=== PATIENT | male | born 2000 | race Caucasian/White ===

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

== ENCOUNTER 2020-02-25 17:42 | Emergency (ER) | payer BC ==
--- NOTE | 2020-02-25 18:52 | EDPHYS ---
Physician Documentation [facility] Name: Evens Carreon Age: 19 yrs Sex: Male : 2000 Arrival Date: 02/25/2020 Time: 17:46 Bed 19 Private MD: ED Physician Je Go HPI: 02/24 18:42 This 19 yrs old Male presents to ER via Ambulatory with complaints of cam POSSIBLE STREP THROAT. 18:42 The patient presents with sore throat. The patient describes throat pain as constant, cam raw, left greater than right, no trismus. Onset: The symptoms/episode began/occurred 3 day(s) ago. Severity of symptoms: At their worst the symptoms were mild, moderate, in the emergency department the symptoms are unchanged. Modifying factors: The symptoms are alleviated by nothing, the symptoms are aggravated by fluids, swallowing, Patient's oral intake status: good. Associated signs and symptoms: The patient has no apparent associated signs or symptoms. The patient has not experienced similar symptoms in the past. Historical: - Allergies: 18:01 No Known Allergies; iw - Home Meds: 18:01 None [Active]; iw - PMHx: 18:01 None; iw - PSHx: 18:01 None; iw - Immunization history:: Adult Immunizations. - Social history:: Smoking status: Reported history of juuling and/or vaping. - Family history:: not pertinent. ROS: 18:42 Constitutional: Negative for fever, chills, and weight loss, Eyes: Negative for injury, cam pain, redness, and discharge, Neck: Negative for injury, pain, and swelling, Cardiovascular: Negative for chest pain, palpitations, and edema, Respiratory: Negative for shortness of breath, cough, wheezing, and pleuritic chest pain, Abdomen/GI: Negative for abdominal pain, nausea, vomiting, diarrhea, and constipation, Back: Negative for injury and pain, : Negative for injury, bleeding, discharge, and swelling, MS/Extremity: Negative for injury and deformity, Skin: Negative for injury, rash, and discoloration, Neuro: Negative for headache, weakness, numbness, tingling, and seizure, Psych: Negative for depression, anxiety, suicide ideation, homicidal ideation, and hallucinations, Allergy/Immunology: Negative for hives, rash, and allergies, Endocrine: Negative for neck swelling, polydipsia, polyuria, polyphagia, and marked weight changes, Hematologic/Lymphatic: Negative for swollen nodes, abnormal bleeding, and unusual bruising. 18:42 ENT: Positive for sore throat. Exam: 18:42 Constitutional: This is a well developed, well nourished patient who is awake, alert, cam and in no acute distress. Head/Face: Normocephalic, atraumatic. Eyes: Pupils equal round and reactive to light, extra-ocular motions intact. Lids and lashes normal. Conjunctiva and sclera are non-icteric and not injected. Cornea within normal limits. Periorbital areas with no swelling, redness, or edema. Neck: Trachea midline, no thyromegaly or masses palpated, and no cervical lymphadenopathy. Supple, full range of motion without nuchal rigidity, or vertebral point tenderness. No Meningismus. Chest/axilla: Normal chest wall appearance and motion. Nontender with no deformity. No lesions are appreciated. Cardiovascular: Regular rate and rhythm with a normal S1 and S2. No gallops, murmurs, or rubs. Normal PMI, no JVD. No pulse deficits. Respiratory: Lungs have equal breath sounds bilaterally, clear to auscultation and percussion. No rales, rhonchi or wheezes noted. No increased work of breathing, no retractions or nasal flaring. Abdomen/GI: Soft, non-tender, with normal bowel sounds. No distension or tympany. No guarding or rebound. No evidence of tenderness throughout. Back: No spinal tenderness. No costovertebral tenderness. Full range of motion. Male : Normal genitalia with no discharge or lesions. Skin: Warm, dry with normal turgor. Normal color with no rashes, no lesions, and no evidence of cellulitis. MS/ Extremity: Pulses equal, no cyanosis. Neurovascular intact. Full, normal range of motion. Neuro: Awake and alert, GCS 15, oriented to person, place, time, and situation. Cranial nerves II-XII grossly intact. Motor strength 5/5 in all extremities. Sensory grossly intact. Cerebellar exam normal. Normal gait. Psych: Awake, alert, with orientation to person, place and time. Behavior, mood, and affect are within normal limits. 18:42 ENT: Posterior pharynx: Airway: normal, no evidence of obstruction, Tonsils: enlarged on the left, with erythema, with exudate, Uvula: midline, non-edematous, erythema, swelling, that is mild, erythema, that is mild, exudate, that is moderate, peritonsillar mass, left tonsil more swollen , slightly asymmetric than right, no trismis. no tenting of the soft palate. Vital Signs: 18:00 BP 139 / 94; Pulse 114; Resp 18 S; Temp 99.8; Pulse Ox 98% on R/A; Weight 56.7 kg; iw Height 5 ft. 3 in. (160.02 cm); Pain 10/10; 18:24 Temp 99.1(O); aa5 18:00 Body Mass Index 22.14 (56.70 kg, 160.02 cm) iw MDM: 17:55 Patient medically screened. [facility] 18:47 Data reviewed: vital signs, nurses notes, lab test result(s). [facility] 02/24 17:55 Order name: Strep; Complete Time: 18:35 [facility] 02/24 18:19 Order name: Throat Culture [facility] 02/24 18:41 Order name: PO challenge; Complete Time: 18:46 [facility] Administered Medications: 19:00 Drug: Bicillin L-A 1.2 million units Route: IM; Site: right gluteus; aa5 19:19 Follow up: Response: No adverse reaction j 19:00 Drug: Clindamycin 300 mg Route: PO; aa5 19:19 Follow up: Response: No adverse reaction j 19:00 Drug: Decadron 10 mg Route: IM; Site: left gluteus; aa5 19:19 Follow up: Response: No adverse reaction j Disposition: 02/25/20 18:51 Discharged to Home. Impression: Acute tonsillitis - peritonsilitis, left. - Condition is Stable. - Discharge Instructions: Tonsillitis, Tonsillitis, [id number], Peritonsillar Cellulitis. - Prescriptions for Clindamycin HCl 300 mg Oral Capsule - take 1 capsule by ORAL route every 6 hours for 10 days; 40 capsule. - Medication Reconciliation Form, Thank You Letter, Antibiotic Education, Prescription Opioid Use form. - Follow up: Private Physician; When: 2 - 3 days; Reason: Recheck today's complaints, Continuance of care, Re-evaluation by your physician. Follow up: Cooper, Tamra, MD; When: 2 - 3 days; Reason: Recheck today's complaints, Re-evaluation by your physician. - Problem is new. - Symptoms are unchanged. Signatures: Dispatcher [employer] EDJe Neely MD MD cha Williams, Irene, RN RN iw Eduarda Patrick RN RN aa5 Wenceslao Hendricks RN RN jd3 Corrections: (The following items were deleted from the chart) 19:20 18:51 02/25/2020 18:51 Discharged to Home. Impression: Acute tonsillitis - jd3 peritonsilitis, left. Condition is Stable. Forms are Medication Reconciliation Form, Thank You Letter, Antibiotic Education, Prescription Opioid Use. Follow up: Private Physician; When: 2 - 3 days; Reason: Recheck today's complaints, Continuance of care, Re-evaluation by your physician. Follow up: Tamra Cooper; When: 2 - 3 days; Reason: Recheck today's complaints, Re-evaluation by your physician. Problem is new. Symptoms are unchanged. cam
--- NOTE | 2020-02-25 18:52 | ER ---
Nurse's Notes [facility] Name: Evens Carreon Age: 19 yrs Sex: Male : 2000 Arrival Date: 02/25/2020 Time: 17:46 Bed 19 Private MD: Diagnosis: Acute tonsillitis-peritonsilitis, left Presentation: 02/24 18:00 Chief complaint: Patient states: sore throat, fever, chills, pain when swallowing, also iw has white bumps in throat X 2 days. Coronavirus screen: Proceed with normal triage. Patient denies a cough. Patient denies shortness of breath or difficulty breathing. Patient reports a measured and/or subjective temperature greater than 100.4F. Patient denies travel on a cruise ship or to a country the [facility] currently lists as an affected area. Patient denies contact with known and/or suspected case of COVID-19. Ebola Screen: Patient negative for fever greater than or equal to 101.5 degrees Fahrenheit, and additional compatible Ebola Virus Disease symptoms Patient denies exposure to infectious person. Patient denies travel to an Ebola-affected area in the 21 days before illness onset. No symptoms or risks identified at this time. Initial Sepsis Screen: Does the patient meet any 2 criteria? No. Patient's initial sepsis screen is negative. Does the patient have a suspected source of infection? No. Patient's initial sepsis screen is negative. Risk Assessment: Do you want to hurt yourself or someone else? Patient reports no desire to harm self or others. Onset of symptoms was February 23, 2020. 18:00 Method Of Arrival: Ambulatory iw 18:00 Acuity: JOVANA 4 iw Historical: - Allergies: 18:01 No Known Allergies; iw - Home Meds: 18:01 None [Active]; iw - PMHx: 18:01 None; iw - PSHx: 18:01 None; iw - Immunization history:: Adult Immunizations. - Social history:: Smoking status: Reported history of juuling and/or vaping. - Family history:: not pertinent. Screenin:00 Abuse screen: Denies threats or abuse. Nutritional screening: No deficits noted. aa5 Tuberculosis screening: No symptoms or risk factors identified. Fall Risk None identified. Assessment: 18:00 General: Appears comfortable, Behavior is calm, cooperative. Pain: Complains of pain in aa5 throat Pain currently is 10 out of 10 on a pain scale. Neuro: Level of Consciousness is awake, alert, obeys commands, Oriented to person, place, time, situation. Cardiovascular: Patient's skin is warm and dry. Respiratory: Airway is patent Respiratory effort is even, unlabored, Respiratory pattern is regular, symmetrical. GI: No signs and/or symptoms were reported involving the gastrointestinal system. : No signs and/or symptoms were reported regarding the genitourinary system. EENT: Throat is reddened has patchy exudate has enlarged tonsils on left. Derm: Skin is pink, warm \T\ dry. Musculoskeletal: Range of motion: intact in all extremities. 19:19 Reassessment: Patient appears in no apparent distress at this time. Patient and/or jd3 family updated on plan of care and expected duration. Pain level reassessed. Patient is alert, oriented x 3, equal unlabored respirations, skin warm/dry/pink. pt reported understanding of discharge instructions. Vital Signs: 18:00 BP 139 / 94; Pulse 114; Resp 18 S; Temp 99.8; Pulse Ox 98% on R/A; Weight 56.7 kg; iw Height 5 ft. 3 in. (160.02 cm); Pain 10/10; 18:24 Temp 99.1(O); aa5 18:00 Body Mass Index 22.14 (56.70 kg, 160.02 cm) ED Course: 17:46 Patient arrived in ED. fj1 17:55 Je Go MD is Attending Physician. cam 18:01 Triage completed. iw 18:02 Arm band placed on. iw 18:02 Patient has correct armband on for positive identification. aa5 18:24 Eduarda Patrick, VENICE is Primary Nurse. aa5 18:49 Tamra Cooper MD is Referral Physician. cam 19:18 No provider procedures requiring assistance completed. Patient did not have IV access jd3 during this emergency room visit. Administered Medications: 19:00 Drug: Bicillin L-A 1.2 million units Route: IM; Site: right gluteus; aa5 19:19 Follow up: Response: No adverse reaction jd3 19:00 Drug: Clindamycin 300 mg Route: PO; aa5 19:19 Follow up: Response: No adverse reaction jd3 19:00 Drug: Decadron 10 mg Route: IM; Site: left gluteus; aa5 19:19 Follow up: Response: No adverse reaction jd3 Outcome: 18:51 Discharge ordered by MD. levy 19:18 Discharged to home ambulatory. jd3 19:18 Condition: stable 19:18 Discharge instructions given to patient, Instructed on discharge instructions, follow up and referral plans. medication usage, Demonstrated understanding of instructions, follow-up care, medications, Prescriptions given X 1. 19:20 Patient left the ED. jd3 Signatures: Je Go MD MD cha Williams, Irene, RN RN iw Calderon, Audri, RN RN aa5 Wenceslao Hendricks RN RN Yakov Flowers fj1
[2020-02-25] MEDS ORDERED: PEN G BENZ LA 1.2MU/2ML SYRINGE IM ONE (18:54)
[2020-02-25] MEDS ORDERED: dexAMETHasone 10 MG/ML VIAL ONE (18:56)
[2020-02-25 19:40] VITALS: BP 139/94; O2SAT 98
[2020-02-25 19:41] VITALS: TEMP 99.1
== END 2020-02-25 19:20 | disposition home or self-care (01) ==
LOC: ER 17:42
DX: J03.90 Acute tonsillitis, unspecified (principal)
CPT/HCPCS: 87070; 87081; J0561; J1100; 96372; 99283

== ENCOUNTER 2024-09-07 08:43 | Emergency (ER) | payer SELFPAY ==
--- OUTSIDE RECORDS SUMMARY | 2024-09-07 08:46 | XMS REPORT | Continuity of Care Document ---
Author Name Unknown Address [address] [facility] 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 Role Phone Chace Gage Attending Clinician Unavailable Chucky Mason Attending Clinician Unavailable Napoleon Baron Attending Clinician Unavailable Billie Bowles Admitting Clinician Unavailable Payers Payer Name Policy Type Policy Number Effective Date Expirati on Date Source Allergies, Adverse Reactions, Alerts Allergy Name Allergy Type Status Severity Reaction(s) Onset Date Inactive Date Treating Clinician Comments Source No Known Allergie s DA Active U 04-15 00:00: 00 [facility] Encounters Start Date/Time End Date/Time Encounter Type Admission Type Attending Clinicians Care Facility Care Department Encounter ID Source 2024-06-19 06:25:00 2024-06-19 09:35:00 Emergency EM Chace Gage [facility] [id number] [facility] 2024-05-06 03:11:00 2024-05-06 06:11:00 Emergency EM Chucky Mason [facility] [id number] 19 [facility] 2024-04-15 07:42:00 2024-04-15 10:15:00 Emergency EM Napoleon Baron [facility] [id number] 75 [facility] 2023-10-02 09:25:2023-10-02 11:18:00 Emergency Department Patient Visit [facility] [id number]. [id number] 4477-06-04 09:16:00 2023-04-17 11:39:00 Emergency Department Patient Visit [facility] [id number]. [id number] Results Test Description Test Time Test Comments Results Result Co mments Source BASIC METABOLIC [id number] 08:22:00* Test Item Value Reference Range Interpretation Comme nts SODIUM (test code = NA) 142.0 mmol/L 136.0-145.0 N POTASSIUM (test code = K) 3.9 mmol/L 3.50-5.10 N CHLORIDE (test code = CL) 107 mmol/L 98.0-107.0 N CARBON DIOXIDE (test code = CO2) 27 mmol/L 20.0-31.0 N ANION GAP (test code = GAP) 8.0 GAP calc 4.0-15.0 N GLUCOSE (test code = GLU) 110 mg/dL 74.0-106.0 H BLOOD UREA NITROGEN (test code = BUN) <5.00 mg/dL 9.00-23.00 L GLOMERULAR FILTRATION RATE (test code = GFR) 111 estGFR >60 The Glomerular Filtration Rate is a calculated parameterbased on serum Creatinine, patient age and sex. GFR valuesless than 60 mL/min/1.73 square meters are indicative ofChronic Kidney Disease. Values less than 15 mL/min/1.73square meters indicate Kidney failure. The calculation forGFR is based on the CKD-EPI (2020) calculation. This formulais race indifferent and is the recommended formula for GFRby the National Kidney Foundation for Adults.The GFR will not calculate if the sex is unknown or if thepatient's age is <18 years. CREATININE (test code = CREAT) 0.98 mg/dL 0.55-1.30 N CALCIUM (test code = CA) 9.5 mg/dL 8.70-10.40 N INDEX HEMOLYSIS (test code = HEMINDEX) 1 NORMAL <10 MG Index/DL See_Comment [Automated message] The system which generated this result transmitted reference range: 1 NORMAL. The reference range was not used to interpret this result as normal/abnormal. INDEX ICTERIC (test code = ICTINDEX) NEGATIVE Index/DL See_Comment [Automated message] The system which generated this result transmitted reference range: 1 NORMAL. The reference range was not used to interpret this result as normal/abnormal. INDEX LIPEMIA (test code = LIPINDEX) NEGATIVE Index/DL See_Comment [Automated message] The system which generated this result transmitted reference range: 1 NORMAL. The reference range was not used to interpret this result as normal/abnormal. HEPATIC FUNCTION [id number] 08:22:00* Test Item Value Reference Range Interpretation Comme nts TOTAL PROTEIN (test code = PROT) 8.0 g/dL 5.7-8.2 N ALBUMIN (test code = ALB) 5.1 g/dL 3.2-4.8 H BILIRUBIN TOTAL (test code = BILT) 0.40 mg/dL 0.30-1.20 N BILIRUBIN DIRECT (test code = BILD) 0.10 mg/dL 0.10-0.30 N BILIRUBIN INDIRECT (test cod e = BILIND) 0.30 mg/dL 0.2-1.3 N SGOT/AST (test code = AST) 21 U/L 8.00-33.90 N SGPT/ALT (test code = ALT) 16 U/L 10.0-49.0 N ALKALINE PHOSPHATASE TOTAL ( test code = ALKP) 66 U/L 46.00-116.00 N [id number] 08:22:00* Test Item Value Reference Range Interpretation Comme nts LIPASE (test code = LIP) 37 U/L 12.0-53.0 N DRUGS OF ABUSE SCREEN [id number] 08:14:00* Test Item Value Reference Range Interpretation Comments URN COCAINE (test code = COCAURN) Negative SCcutoff Negative URN CANNABINOIDS (test code = CANNABURN) Negative SCcutoff Negative URN AMPHETAMINE (test code = AMPHETURN) Negative SCcutoff Negative URN BARBITURATE (test code = BARBITURN) Negative SCcutoff Negative URN BENZODIAZEPINE (test code = BENZOURN) Negative SCcutoff Negative URN OPIATES (test code = OPIATURN) Negative SCcutoff Negative URN PHENCYCLIDINE (PCP) (test code = PHENCURN) Negative SCcutoff Negative ------ For all drug screen analytes ------The screen method provides only a preliminary analyticaltest result. A more specific alternate chemical method mustbe used in order to obtain a confirmed analytical result.Gas chromatography/mass spectrometry (GC/MS) is thepreferred confirmatory method. Other chemical confirmationmethods are available. Clinical consideration andprofessional judgement should be applied to any drug ofabuse test result, particularly when preliminary positiveresults are used. CBC W/O [id number] 08:03:00* Test Item Value Reference Range Interpretation Comme nts WHITE BLOOD CELL (test code = WBC) 7.0 K/mm3 4.1-12.1 N RED BLOOD CELL (test code = RBC) 5.17 M/mm3 3.8-5.5 N HEMOGLOBIN (test code = HGB) 15.5 G/DL 10.6-15.8 N HEMATOCRIT (test code = HCT) 44.6 % 31.8-47.4 N MEAN CELL VOLUME (test code = MCV) 86.3 fL 80.1-101.1 N MEAN CELL HGB (test code = MCH) 30.0 pg 25.3-35.3 N MEAN CELL HGB CONCETRATION ( test code = MCHC) 34.8 G/DL 32.7-35.1 N RED CELL DISTRIBUTION WIDTH (test code = RDW) 13.6 % 12.2-16.4 N PLATELET COUNT (test code = PLT) 352 K/mm3 155-337 H MEAN PLATELET VOLUME (test c ode = MPV) 9.2 fL 7.6-10.4 N TROP-I HIGH [id number] 06:00:00* Test Item Value Reference Range Interpretation Comme nts TROP-I HIGH SENSITIVITY (test code = TROPIHS) 3 ng/L 0-54 N 99th Percentile Upper Reference Limit (URL):Females: 34 ng/LMales: 54 ng/L In order to distinguish acute elevations of high sensitivitytroponin from other clinical conditions, the FourthUniversal Definition of Myocardial Infarction stressesclinical assessment and the demonstration of a riseand/or fall in serial troponin results above the URL. These results were obtained using Siemens [employer] IM TnIHreagent. Results from different methodologies should not becompared to one another as quantitative results and URLs mayvary by method. NOTE: a bias of less than or equal to 10% may occur forthese substances: Biotin (3500 ng/mL) Cholesterol (500 mg/dL)Protein Albumin (6 g/dL)Protein Gamma Globulin (2.5 g/dL)Total Protein (12 g/dL) - CT ANGIO [id number] 05:39:00 [facility] : 2000 Sex: M PatientName: LENA RAMIREZ Unit No: [id number] EXAMS: CPT CODE: [id number] CT ANGIO CHEST [address] Radiation Dose CTDIVOL = 28.07 (mGy): DLP = 275.54 (mGy-cm) PROCEDURE INFORMATION: Exam: CTA Chest With ContrastExam date and time: 05/06/2024 4:20 AM Age: 23 years old Clinical indication: Chest pain / shortnessof breath TECHNIQUE: Imaging protocol: Computed tomographic angiography of the chest with contrast.Exam focused on the arteries. 3D rendering (Not supervised by radiologist): MIP and/or 3D reconstructed images were created by the technologist. Radiation optimization: All CT scans at this facility use at least one of these dose optimization techniques: automated exposure control; mA and/or kV adjustment per patient size (includes targeted exams where dose is matched to clinical indication); or iterative reconstruction. Contrast material: 370; Contrast volume: 80 ml; Contrast route: INTRAVENOUS (IV); COMPARISON: DX XR CHEST 1V 05/06/2024 3:41 AM RADIATION DOSE METRICS: CTDI volume (mGy): 28.07 Total DLP (mGy-cm): 275.54 FINDINGS: Pulmonary arteries: No pulmonary arterial filling defects through the segmental branches to suggest pulmonary embolism. Aorta: Unremarkable. No aortic aneurysm.No aortic dissection. Thymus: Small amount of thymic tissue is seen. Lungs: Unremarkable. No consolidation. No masses. Pleural spaces: Unremarkable. No pneumothorax. No pleural effusion. Heart: Unremarkable. No cardiomegaly. No pericardial effusion. Lymph nodes: Calcified right hilar lymph node likely representing prior granulomatous disease. Kidneys and ureters: Small renal lesions that are too small to accurately characterize. Bones/joints: Small Schmorl's nodes in the thoracic spine. No evidence of acute fracture. Soft tissues: Unremarkable. IMPRESSION: 1. No evidence of pulmonary embolism. 2. No acute chest findings. COMMENTS: Consistent with the [place] [employer]'s Incidental Findings Committee white paper (J Am Xi Radiol 2018): Any incidental renal lesion less than 1 cm or classified as too small to characterize, or any incidental cystic renal lesion characterized assimple-appearing, is likely benign. No follow-up imaging is recommended for these lesions per consensus recommendations based on imaging criteria. REBEKA Buck NAME: [address] PHYS: Chucky Madrigal [place], [place] [address] : 2000 AGE: 23 SEX: M LOC: B.ERS PHONE #: [phone] EXAM DATE: 05/06/2024 STATUS: REG ER FAX #: [phone] #: D/C DT PAGE 1 Signed Report (CONTINUED) Patient Name: LENA RAMIREZ Unit No: [id number] EXAMS: CPT CODE: [id number] CT ANGIO CHEST 00806 (Continued) at 0539 Reported and signed by: Jalil Grider MD CC: Billie Bowles NP; Chucky Cavanaugh MD Dictated Date/Time: 05/06/2024 (0539) Technologist: Farrah Patricio CTDI: DLP: Trnscrpt: 05/06/2024 (0539) [email or web address] [facility] [place] NAME: [address] PHYS: Chucky Madrigal [place] [address] : 2000 AGE: 23 SEX: M LOC: B.ERS PHONE #: [phone] EXAM DATE: 05/06/2024 STATUS: REG ER FAX #: [phone] RAD #: D/C DT PAGE 2 Signed Report Patient Name: LENA RAMIREZ Unit No: [id number] EXAMS: CPT CODE: [id number] CTANGIO CHEST 12[address] (Continued) Orig Print D/T: S: 05/06/2024 (0539) [facility] [place] NAME: LENA RAMIREZ [address] [place] [address] Blvd PHYS: Chucky Madrigal MD [place] [id number] : 2000 AGE: 23SEX: M LOC: B.ERS PHONE #: [phone] EXAM DATE: 05/06/2024 STATUS: REG ER FAX #: [phone] RAD #: D/C DT PAGE 3 Signed ReportTROP-I HIGH [id number] 04:55:00* Test Item Value Reference Range Interpretation Comme nts TROP-I HIGH SENSITIVITY (test code = TROPIHS) < 3 ng/L 0-54 N 99th Percentile Upper Reference Limit (URL):Females: 34 ng/LMales: 54 ng/L In order to distinguish acute elevations of high sensitivitytroponin from other clinical conditions, the FourthUniversal Definition of Myocardial Infarction stressesclinical assessment and the demonstration of a riseand/or fall in serial troponin results above the URL. These results were obtained using Siemens [employer] IM TnIHreagent. Results from different methodologies should not becompared to one another as quantitative results and URLs mayvary by method. NOTE: a bias of less than or equal to 10% may occur forthese substances: Biotin (3500 ng/mL) Cholesterol (500 mg/dL)Protein Albumin (6 g/dL)Protein Gamma Globulin (2.5 g/dL)Total Protein (12 g/dL) [id number] 04:55:00* Test Item Value Reference Range Interpretation Comme nts LIPASE (test code = LIP) 44 Unit/L 12-53 N COMPREHENSIVE METABOLIC [id number] 04:55:00* Test Item Value Reference Range Interpretation Comme nts SODIUM (test code = NA) 145.0 mmol/L 133-144 H POTASSIUM (test code = K) 3.9 mmol/L 3.5-5.1 N CHLORIDE (test code = CL) 108 mmol/L 98-107 H CARBON DIOXIDE (test code = CO2) 28 mEq/L 20-31 N ANION GAP (test code = GAP) 9.0 GAP calc 4.0-15.0 N GLUCOSE (test code = GLU) 92 MG/DL 70-110 N BLOOD UREA NITROGEN (test code = BUN) 5 MG/DL 7-18 L GLOMERULAR FILTRATION RATE (test code = GFR) 96 estGFR >60 The Glomerular Filtration Rate is a calculated parameterbased on serum Creatinine, patient age and sex. GFR valuesless than 60 mL/min/1.73 square meters are indicative ofChronic Kidney Disease. Values less than 15 mL/min/1.73square meters indicate Kidney failure. The calculation forGFR is based on the CKD-EPI (202) calculation. This formulais race indifferent and is the recommended formula for GFRby the National Kidney Foundation for Adults.The GFR will not calculate if the sex is unknown or if thepatient's age is <18 years. CREATININE (test code = CREAT) 1.11 mg/dL 0.55-1.30 N TOTAL PROTEIN (test code = PROT) 8.3 G/DL 6.4-8.2 H ALBUMIN (test code = ALB) 5.2 G/DL 3.2-4.8 H ALBUMIN/GLOBULIN RATIO (test code = A/G) 1.7 RATIO 1.2-2.2 N CALCIUM (test code = CA) 9.3 MG/DL 8.7-10.4 N BILIRUBIN TOTAL (test code = BILT) 0.30 MG/DL 0.00-1.00 N BILIRUBIN DIRECT (test code = BILD) <0.10 MG/DL 0.10-0.30 L BILIRUBIN INDIRECT (test code = BILIND) CALC KENNY MG/DL 0.2-1.3 L SGOT/AST (test code = AST) 19 Unit/L 8-33.9 N SGPT/ALT (test code = ALT) 16 Unit/L 10-49 N ALKALINE PHOSPHATASE TOTAL (test code = ALKP) 69 Unit/L 45-117 N INDEX HEMOLYSIS (test code = HEMINDEX) 1 NORMAL <10 MG Index/DL See_Comment [Automated message] The system which generated this result transmitted reference range: 1 NORMAL. The reference range was not used to interpret this result as normal/abnormal. INDEX ICTERIC (test code = ICTINDEX) NEGATIVE Index/DL See_Comment [Automated message] The system which generated this result transmitted reference range: 1 NORMAL. The reference range was not used to interpret this result as normal/abnormal. INDEX LIPEMIA (test code = LIPINDEX) NEGATIVE Index/DL See_Comment [Automated message] The system which generated this result transmitted reference range: 1 NORMAL. The reference range was not used to interpret this result as normal/abnormal. CREATINE KINASE (CK)2024-05-06 04:55:00* Test Item Value Reference Range Interpretation Comme nts CREATINE KINASE (CK) (test c ode = CK) 143 Unit/L 34-171 N [id number] 04:55:00* Test Item Value Reference Range Interpretation Comme nts MAGNESIUM (test code = MAG) 2.0 MG/DL 1.8-2.4 N [id number] 04:55:00* Test Item Value Reference Range Interpretation Comme nts ALCOHOL (test code = ALC) 275 MG/DL 0-10 H MEDICAL ALCOHOL RESULTS. SITE WAS PREPPED WITH BETADINE. <10 MG/DL ARE CONSIDERED NEGATIVE. >400 MG/DL MAY BE FATAL.RESULTS FOR MEDICAL USE ONLY. NOT TO BE USED FOR FORENSIC PURPOSES. B-TYPE NATRIURETIC [id number] 04:55:00* Test Item Value Reference Range Interpretation Comme nts B-TYPE NATRIURETIC PEPTIDE ( test code = BNP) 2.1 PG/ML 0.00-100.00 N DRUGS OF ABUSE SCREEN [id number] 04:40:00* Test Item Value Reference Range Interpretation Comments URN COCAINE (test code = COCAURN) Negative SCcutoff See_Comment [Automated message] The system which generated this result transmitted reference range: <300 NG/ML. The reference range was not used to interpret this result as normal/abnormal. URN CANNABINOIDS (test code = CANNABURN) Negative SCcutoff See_Comment [Automated message] The system which generated this result transmitted reference range: <50 NG/ML. The reference range was not used to interpret this result as normal/abnormal. URN AMPHETAMINE (test code = AMPHETURN) Negative SCcutoff See_Comment [Automated message] The system which generated this result transmitted reference range: <1000 NG/ML. The reference range was not used to interpret this result as normal/abnormal. URN BARBITURATE (test code = BARBITURN) Negative SCcutoff See_Comment [Automated message] The system which generated this result transmitted reference range: <200 NG/ML. The reference range was not used to interpret this result as normal/abnormal. URN BENZODIAZEPINE (test code = BENZOURN) Negative SCcutoff See_Comment [Automated message] The system which generated this result transmitted reference range: <200 NG/ML. The reference range was not used to interpret this result as normal/abnormal. URN OPIATES (test code = OPIATURN) Negative SCcutoff See_Comment [Automated message] The system which generated this result transmitted reference range: <300 NG/ML. The reference range was not used to interpret this result as normal/abnormal. URN PHENCYCLIDINE (PCP) (test code = PHENCURN) Negative SCcutoff See_Comment ------ For all drug screen analytes ------The screen method provides only a preliminary analyticaltest result. A more specific alternate chemical method mustbe used in order to obtain a confirmed analytical result.Gas chromatography/mass spectrometry (GC/MS) is thepreferred confirmatory method. Other chemical confirmationmethods are available. Clinical consideration andprofessional judgement should be applied to any drug ofabuse test result, particularly when preliminary positiveresults are used. [Automated message] The system which generated this result transmitted reference range: <25 NG/ML. The reference range was not used to interpret this result as normal/abnormal. CBC W/AUTO [id number] 04:31:00* Test Item Value Reference Range Interpretation Comme nts WHITE BLOOD CELL (test code = WBC) 7.9 K/mm3 4.1-12.1 N RED BLOOD CELL (test code = RBC) 5.11 M/mm3 3.8-5.5 N HEMOGLOBIN (test code = HGB) 15.2 G/DL 10.6-15.8 N HEMATOCRIT (test code = HCT) 43.9 % 31.8-47.4 N MEAN CELL VOLUME (test code = MCV) 85.9 fL 80.1-101.1 N MEAN CELL HGB (test code = MCH) 29.7 pg 25.3-35.3 N MEAN CELL HGB CONCETRATION ( test code = MCHC) 34.6 G/DL 32.7-35.1 N RED CELL DISTRIBUTION WIDTH (test code = RDW) 13.0 % 12.2-16.4 N RED CELL DISTRIBUTION WIDTH (test code = RDW-SD) 40.8 fL 35.1-43.9 N PLATELET COUNT (test code = PLT) 383 K/mm3 155-337 H MEAN PLATELET VOLUME (test c ode = MPV) 9.7 fL 7.6-10.4 N GRANULOCYTE % (test code = GR%) 50.2 % 37.8-82.6 N IMMATURE GRANULOCYTE % (test code = IG%) 0.3 % 0.0-2.0 N LYMPHOCYTE % (test code = LY%) 41.5 % 14.1-45.4 N MONOCYTE % (test code = MO%) 7.5 % 2.5-11.7 N EOSINOPHIL % (test code = EO%) 0.1 % 0.0-6.2 N BASOPHIL % (test code = BA%) 0.4 % 0.0-2.6 N NUCLEATED RBC % (test code = NRBC%) 0.0 /100WBC% 0.0-1.0 N GRANULOCYTE # (test code = GR#) 3.94 k/mm3 2.0-13.7 N IMMATURE GRANULOCYTE # (test code = IG#) 0.02 K/mm3 0.00-0.03 N LYMPHOCYTE # (test code = LY#) 3.26 K/mm3 0.6-3.8 N MONOCYTE # (test code = MO#) 0.59 K/mm3 0.11-0.59 N EOSINOPHIL # (test code = EO#) 0.01 K/mm3 0.0-0.4 N BASOPHIL # (test code = BA#) 0.03 K/mm3 0.0-0.1 N NUCLEATED RBC # (test code = NRBC#) 0.00 K/mm3 0.00-0.05 N - XR CHEST 1 [id number] 03:51:00 [facility] : 2000 Sex: M FAX: Billie Mcconnell NP [phone] [place]: St: PRE FAX: Chucky Azevedo MD Patient Name: LENA RAMIREZ Unit No: [id number] EXAMS: CPT CODE: [id number] XR CHEST 1 V 05124 PROCEDURE INFORMATION: Exam: XR Chest Exam date andtime: 05/06/2024 3:41 AM Age: 23 years old Clinical indication: Chest pain TECHNIQUE: Imaging protocol: Radiologic exam of the chest. Views: 1 view. COMPARISON: DX XR CHEST 1V 04/15/2024 7:53 AM FINDINGS: Lungs: Clear. No consolidation. Pleural spaces: Unremarkable. No pleural effusion. No pneumothorax. Heart/Mediastinum: Contours within normal limits. Bones/joints: No acute osseous process. IMPRES PRETTY: No radiographically identified acute findings in the chest. at 0351 Reported and signed by: Duc Owen MD CC: Billie Bowles ASSISTANT TENNIS COACH;Chucky Mason MD Dictated Date/Time: 05/06/2024 (0351)Technologist: RAISSA GRIMM Transcribed Date/Time: 05/06/2024 (350) By: [email or web address] Orig Print D/T: S: 05/06/2024 (035) REBEKA Durane NAME:LENA RAMIREZ [address] [place] [address] Blvd PHYS: Chucky Madrigal [place], [place] [address] : 2000 AGE: 23 SEX: M LOC: B.ERS PHONE #: [phone] EXAM DATE: 05/06/2024 STATUS: PRE ER FAX #: [phone] RAD NO: DC Dt: PAGE 1 Signed ReportTROP-I HIGH [id number] 09:50:00* Test Item Value Reference Range Interpretation Comme nts TROP-I HIGH SENSITIVITY (test code = TROPIHS) < 3 ng/L 0-54 N 99th Percentile Upper Reference Limit (URL):Females: 34 ng/LMales: 54 ng/L In order to distinguish acute elevations of high sensitivitytroponin from other clinical conditions, the FourthUniversal Definition of Myocardial Infarction stressesclinical assessment and the demonstration of a riseand/or fall in serial troponin results above the URL. These results were obtained using Siemens [employer] IM TnIHreagent. Results from different methodologies should not becompared to one another as quantitative results and URLs mayvary by method. NOTE: a bias of less than or equal to 10% may occur forthese substances: Biotin (3500 ng/mL) Cholesterol (500 mg/dL)Protein Albumin (6 g/dL)Protein Gamma Globulin (2.5 g/dL)Total Protein (12 g/dL) BASIC METABOLIC [id number] 08:51:00* Test Item Value Reference Range Interpretation Comme nts SODIUM (test code = NA) 142.0 mmol/L 133-144 N POTASSIUM (test code = K) 4.1 mmol/L 3.5-5.1 N CHLORIDE (test code = CL) 107 mmol/L 98-107 N CARBON DIOXIDE (test code = CO2) 26 mEq/L 20-31 N ANION GAP (test code = GAP) 9.0 GAP calc 4.0-15.0 N GLUCOSE (test code = GLU) 114 MG/DL 70-110 H BLOOD UREA NITROGEN (test code = BUN) 5 MG/DL 7-18 L GLOMERULAR FILTRATION RATE (test code = GFR) 94 estGFR >60 The Glomerular Filtration Rate is a calculated parameterbased on serum Creatinine, patient age and sex. GFR valuesless than 60 mL/min/1.73 square meters are indicative ofChronic Kidney Disease. Values less than 15 mL/min/1.73square meters indicate Kidney failure. The calculation forGFR is based on the CKD-EPI (202) calculation. This formulais race indifferent and is the recommended formula for GFRby the National Kidney Foundation for Adults.The GFR will not calculate if the sex is unknown or if thepatient's age is <18 years. CREATININE (test code = CREAT) 1.13 mg/dL 0.55-1.30 N CALCIUM (test code = CA) 9.5 MG/DL 8.7-10.4 N INDEX HEMOLYSIS (test code = HEMINDEX) 1 NORMAL <10 MG Index/DL See_Comment [Automated message] The system which generated this result transmitted reference range: 1 NORMAL. The reference range was not used to interpret this result as normal/abnormal. INDEX ICTERIC (test code = ICTINDEX) NEGATIVE Index/DL See_Comment [Automated message] The system which generated this result transmitted reference range: 1 NORMAL. The reference range was not used to interpret this result as normal/abnormal. INDEX LIPEMIA (test code = LIPINDEX) NEGATIVE Index/DL See_Comment [Automated message] The system which generated this result transmitted reference range: 1 NORMAL. The reference range was not used to interpret this result as normal/abnormal. TROP-I HIGH [id number] 08:51:00* Test Item Value Reference Range Interpretation Comme nts TROP-I HIGH SENSITIVITY (test code = TROPIHS) 3 ng/L 0-54 N 99th Percentile Upper Reference Limit (URL):Females: 34 ng/LMales: 54 ng/L In order to distinguish acute elevations of high sensitivitytroponin from other clinical conditions, the FourthUniversal Definition of Myocardial Infarction stressesclinical assessment and the demonstration of a riseand/or fall in serial troponin results above the URL. These results were obtained using [employer] IM TnIHreagent. Results from different methodologies should not becompared to one another as quantitative results and URLs mayvary by method. NOTE: a bias of less than or equal to 10% may occur forthese substances: Biotin (3500 ng/mL) Cholesterol (500 mg/dL)Protein Albumin (6 g/dL)Protein Gamma Globulin (2.5 g/dL)Total Protein (12 g/dL) - XR CHEST 1 [id number] 08:38:00 [facility] : 2000 Sex: M FAX: Patsy Edgar [place]: E St: REG Patient Name: LENA RAMIREZ Unit No: [id number] EXAMS: CPT CODE: [id number] XR CHEST1 V 97327 PROCEDURE INFORMATION: Exam: XR Chest Exam date and time: 04/15/2024 7:53 AM Age: 23 years old Clinical indication: Chest pain TECHNIQUE: Imaging protocol: Radiologic exam of the chest. Views: 1 view. COMPARISON: No relevant prior studies available. FINDINGS: Lungs: Normal lung volumes. No consolidation. Pleural spaces: No pleural effusion. No pneumothorax. Heart/Mediastinum: Heart size is within normal limits. Vasculature is unremarkable. Bones/joints: No acute osseous abnormalities. IMPRESSION: No acute cardiopulmonary findings. at 0838 Reported and signed by: Darshan Russell MD CC: Patsy Edgar Dictated Date/Time: 04/15/2024 (837)Technologist: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 tender upper L. Cardiovascular Cardiovascular Heart rate NL, Regular rhythm, Heart sounds NL, No gallop, No murmurs, No rubs, Cap refill not delayed, Peripheral circulation NL, Pulses = bilaterally Abdomen/GI Abdomen/GI Atraumatic, Soft, Non-tender Skin Skin Atraumatic, Color NL, No rash, Warm, Dry, Intact Neurologic Neurologic Oriented X3, Speech NL, No motor deficits, No sensory deficits, CN II - XII intact, Reflexes equal bilat, Gait NL Interpretation Diagnostics Lab Results Interpretation Results Laboratory Tests 04/15/24 0802: [Embedded Image Not Available] Laboratory Tests: 04/15 04/15 04/15 0915 0802 0802 Chemistry Sodium (133 - 144 mmol/L) 142.0 Potassium (3.5 - 5.1 mmol/L) 4.1 Chloride (98 - 107 mmol/L) 107 Carbon Dioxide (20 - 31 mEq/L) 26 Anion Gap (4.0 - 15.0 GAP calc) 9.0 BUN (7 - 18 MG/DL) 5 L Creatinine (0.55 - 1.30 mg/dL) 1.13 Glomerular Filtr Rate (>60 estGFR) 94 Glucose (70 - 110 MG/DL) 114 H Calcium (8.7 - 10.4 MG/DL) 9.5 Troponin I High Sens (0 - 54 ng/L) < 3 3 Specimen Appearance (1 NORMAL Index/DL) NEGATIVE Specimen Hemolysis (1 NORMAL Index/DL) 1 NORMAL <10 MG Hematology WBC (4.1 - 12.1 K/mm3) 8.0 RBC (3.8 - 5.5 M/mm3) 5.21 Hgb (10.6 - 15.8 G/DL) 14.9 Hct (31.8 - 47.4 %) 45.1 MCV (80.1 - 101.1 fL) 86.6 MCH (25.3 - 35.3 pg) 28.6 MCHC (32.7 - 35.1 G/DL) 33.0 RDW (12.2 - 16.4 %) 13.0 Plt Count (155 - 337 K/mm3) 355 H MPV (7.6 - 10.4 fL) 9.3 Recent Impressions: RADIOLOGY - XR CHEST 1 V 04/15 0753 Report Impression - Status: SIGNED Entered: 04/15/2024 0839 IMPRESSION: No acute cardiopulmonary findings. Impression By: [email or web address] - Darshan Russell MD Re-Evaluation MDM Free Text MDM Notes Free Text MDM Notes Number and complexity: [Moderate complexity] Differential diagnosis considered but not limited to: [ACS, PE, alcohol intoxication, pleural pleurisy, endocarditis, pneumothorax] MDM data: [ ] External documents reviewed: [N/A] My EKG interpretation: [N/A] My CT interpretation: [N/A] My x-ray interpretation: [N/A] My ultrasound interpretation: [N/A] Labs reviewed by me: [N/A] Decision rules/scores evaluated: [N/A] Discussed with: [N/A] Consider admission for: [N/A] Treatment and disposition:[Patient is well-appearing 20-year-old male with no past medical history. Patient is a smoker. Patient reports he takes Adderall and his baseline heart rate is greater than 100. Patient's heart rate noted to be 108 on EKG. Wells criteria less than 1.5% risk factor for PE, did consider pulmonary insulin as cause for discomfort. Cardiac workup is negative, EKG sinus tachycardia, chest x-ray that acute findings. Return precautions discussed strictly follow-up discussed directly.] Code status: Full ED course: Patient is a well-appearing, nontoxic, tolerating p.o. Discussed with [patient]treatment plan, follow-up, recommendations as well as return precautions. Patient verbalizes understanding and agrees with plan Re-Evaluation/Progress #1 Time of Re-Eval 1004 Re-Eval Status Resolved ED Course Medication(s) Ordered Medication(s) Ordered: Central Nervous System Agents Sig/Adelso Start time Last Medication Dose Route Stop Time Status Admin Aspirin 325 MG X1ED STA 04/15 0749 DC 04/15 PO 04/15 0750 0759 Electrolytic, Caloric, And Brayden Sig/Adelso Start time Last Medication Dose Route Stop Time Status Admin Sodium Chloride 1,000 ML X1ED STA 04/15 0749 DC 04/15 IV 04/15 0848 0800 Differential Diagnosis )( Differential Diagnosis Acute coronary syndrome, Aortic dissection, Chest pain , Congestive heart failure, Dysrhythmia, GERD Patient Discharge Departure Vital Signs/Condition Vital Signs First Documented: Result Date Time Pulse Ox 99 04/15 0744 B/P 144/76 04/15 0744 B/P Mean 98 04/15 0744 Temp 98.0 04/15 0744 Pulse 111 04/15 0744 Resp 18 04/15 0744 Last Documented: Result Date Time Pulse Ox 96 04/15 0900 Pulse 89 04/15 0900 Resp 20 04/15 0900 B/P 140/79 / 0804 B/P Mean 104 04/15 0804 Temp 98.0 04/15 0744 All vital signs available at the time of this entry have been reviewed. Clinical Impression Clinical Impression Primary Impression: Chest pain Secondary Impressions: Alcohol use Disposition Decision Discharge )( Discharged to Home Yes )( Time 0959 )( Date 04/15/24 Discharge/Care Plan Counseled Regarding Diagnosis, Lab results, Imaging studies, Medication changes, Prescriptions, Need for follow-up, When to return to ED Patient Instructions ED Alcohol Abuse, ED Chest Pain, Noncardiac Additional Instructions Your cardiac workup today was negative. Your heart rate was slightly elevated. As you report this is normal for you we will discharge you home. Follow-up with your primary care doctor. If her symptoms are Stearn or are worse come back to the ER Discharge Note I have spoken with the patient and/or caregivers. I have explained the patient's condition, diagnoses and treatment plan based on the information available to me at this time. I have answered the patient's and/or caregiver's questions and addressed any concerns. The patient and/or caregivers have as good an understanding of the patient's diagnosis, condition and treatment plan as can be expected at this point. The vital signs have been stable. The patient's condition is stable and appropriate for discharge from the emergency department. The patient will pursue further outpatient evaluation with the primary care physician or other designated or consulting physician as outlined in the discharge instructions. The patient and/or caregivers are agreeable to this plan of care and follow-up instructions have been explained in detail. The patient and/or caregivers have received these instructions in written format and have expressed an understanding of the discharge instructions. The patient and/or caregivers are aware that any significant change in condition or worsening of symptoms should prompt an immediate return to this or the closest emergency department or a call to 911. Napoleon Baron 04/18/24 0926: Patient Discharge Departure Discharge/Care Plan Referrals Resource Referral: [facility] Address: [address] [place] [address] [place] [address] Supervising Physician Note MidLv Saw Pt Alone I have reviewed the PA/ASSISTANT TENNIS COACH's note and plan of care. I was available for consultation as needed at all times during the patient's visit in the emergency department. I agree with the clinical impression, plan and disposition. at 1005 at 0911 RPT #:[id number] END OF REPORT [facility]
[2024-09-07 09:17] LABS: Absolute Monocytes 0.5 K/uL (0.1-1.3); Absolute Neutrophil 2.5 K/uL (1.8-8.0); Basophils % 0.5 % (0-1.3); Eosinophils % 0.7 % (0-4.4); Hematocrit 46.9 % (39.6-49.0); Hemoglobin 15.7 g/dL (13.6-17.9); Lymphocytes % 56.4 % (15.3-44.8); MCH 29.8 pg (27.0-35.0); MCHC 33.5 g/dL (32.0-36.0); MCV 88.7 fL (80-100); MPV 8.2 fL (7.6-11.3); Monocytes % 7.1 % (3.3-12.3); Neutrophils % 35.3 % (41.7-73.7); Nucleated Red Blood Cells % 0.1 % (0-0); Platelets 323 thou/uL (152-406); RBC Red Blood Cell Count 5.29 M/uL (4.33-5.43); Red Cell Distribution Width 13.6 % (12.1-15.2)
[2024-09-07] MEDS ORDERED: THIAMINE 200 MG/2 ML INJ ONE (09:41)
--- NOTE | 2024-09-07 09:55 | RAD REPORT ---
EXAMINATION: ONE VIEW CHEST XR CLINICAL INDICATION: Male, 24 years old.,CHEST PAIN TECHNIQUE: Frontal chest projection is submitted. Examination is limited by patient positioning and t echnique. COMPARISON: No prior exam. FINDINGS: The lungs are well inflated and clear. No pneumothorax or sizable effusion. The heart is normal in s ize. IMPRESSION: No acute intrathoracic abnormalities.
[2024-09-07 09:56] LABS: PT Prothrombin Time 11.4 SECONDS (9.4-12.5); PTT, Activated Partial Thromb 31.3 SECONDS (24.3-36.9); Protime INR 1.02
--- NOTE | 2024-09-07 10:02 | ER ---
Nurse's Notes [facility] Name: Evens Carreon Age: 24 yrs Sex: Male : 2000 Arrival Date: 09/07/2024 Time: 08:43 Bed 7 Private MD: Diagnosis: Chest pain, unspecified;Alcohol abuse with intoxication;Alcohol use, unspecified Presentation: 09/07 08:46 Chief complaint: EMS states: "Toned out for CP and SOB that started after drink a 12 mb9 pack of twisted teas and taking 1 Adderall. 4 mg of Zofran and 1 liter of NS given.". Coronavirus screen: Vaccine status: Patient reports being unvaccinated. Ebola Screen: No symptoms or risks identified at this time. Initial Sepsis Screen: Does the patient meet any 2 criteria? HR > 90 bpm. Does the patient have a suspected source of infection? No. Patient's initial sepsis screen is negative. Risk Assessment: Do you want to hurt yourself or someone else? Patient reports no desire to harm self or others. Onset of symptoms was September 07, 2024. 08:46 Acuity: JOVANA 2 mb9 08:46 Method Of Arrival: EMS: [facility] mb9 Triage Assessment: 08:48 General: Appears uncomfortable, Behavior is cooperative, anxious. Pain: Complains of mb9 pain in chest Pain radiates to left arm Pain currently is 8 out of 10 on a pain scale. Quality of pain is described as pressure, throbbing, Pain began suddenly. EENT: No signs and/or symptoms were reported regarding the EENT system. Neuro: Calderon Agitation-Sedation Scale (RASS): 0 - Alert and Calm Level of Consciousness is awake, alert, obeys commands, Oriented to person, place, time, situation, Appropriate for age. Cardiovascular: Reports chest pain, shortness of breath, Patient's skin is warm and dry. Rhythm is sinus tachycardia. Respiratory: Reports shortness of breath Airway is patent Respiratory effort is even, unlabored, Respiratory pattern is regular, symmetrical. GI: Abdomen is flat, non-distended, Abd is soft and non tender X 4 quads. Reports nausea. : No signs and/or symptoms were reported regarding the genitourinary system. Derm: Skin is pink, warm \\T\\ dry. Musculoskeletal: Range of motion: intact in all extremities. Historical: - Allergies: 08:47 No Known Allergies; mb9 - Home Meds: 08:47 Adderall XR 30 mg Oral Capsule, ER 24 hr [Active]; mb9 - PMHx: 08:47 ADHD; mb9 - PSHx: 08:47 None; mb9 - Immunization history:: Adult Immunizations up to date. - Infectious Disease History:: Denies. - Social history:: Smoking status: Reported history of juuling and/or vaping. Screenin:[facility] ED Fall Risk Assessment (Adult) History of falling in the last 3 months, mb9 including since admission No falls in past 3 months (0 pts) Confusion or Disorientation No (0 pts) Intoxicated or Sedated No (0 pts) Impaired Gait No (0 pts) Mobility Assist Device Used No (0 pt) Altered Elimination No (0 pt) Score/Fall Risk Level 0 - 2 = Low Risk Oriented to surroundings, Maintained a safe environment, Educated pt \\T\\ family on fall prevention, incl call for assistance when getting out of bed. Abuse screen: Denies threats or abuse. Nutritional screening: No deficits noted. Tuberculosis screening: No symptoms or risk factors identified. Assessment: 08:51 Reassessment: see triage assessment. mb9 09:47 Reassessment: No changes from previously documented assessment. Patient and/or family mb9 updated on plan of care and expected duration. Pain level reassessed. Patient is alert, oriented x 3, equal unlabored respirations, skin warm/dry/pink. 10:03 Reassessment: No changes from previously documented assessment. Patient and/or family mb9 updated on plan of care and expected duration. Pain level reassessed. Patient is alert, oriented x 3, equal unlabored respirations, skin warm/dry/pink. 10:07 Reassessment: D/C pending completion of fluids and normal VS. mb9 11:05 Reassessment: No changes from previously documented assessment. Patient and/or family mb9 updated on plan of care and expected duration. Pain level reassessed. Patient is alert, oriented x 3, equal unlabored respirations, skin warm/dry/pink. 12:33 Pain: Denies pain. ko1 Vital Signs: 08:46 BP 133 / 88; Pulse 128; Resp 18; Temp 98; Pulse Ox 100% ; Weight 58.97 kg; Height 5 ft. mb9 4 in. ; Pain 8/10; 09:00 BP 124 / 73; Pulse 110; Resp 15; Pulse Ox 98% on R/A; ko1 09:47 BP 98 / 41; Pulse 103; Resp 14; Pulse Ox 98% ; ko1 10:15 BP 95 / 45; Pulse 98; Resp 14; Pulse Ox 99% ; ko1 12:33 BP 108 / 56; Pulse 92; Resp 16; Pulse Ox 99% ; ko1 08:46 Body Mass Index 22.31 (58.97 kg, 162.56 cm) mb9 08:46 Pain Scale: Adult mb9 ED Course: 08:44 Patient arrived in ED. ko1 08:45 Regla Callahan, VENICE is Primary Nurse. mb9 08:47 Triage completed. mb9 08:48 Arm band placed on. mb9 08:51 Initial lab(s) drawn, by me, sent to lab. EKG done, by ED staff, reviewed by Tamra Hawk MD. Maintain EMS IV. Dressing intact. Good blood return noted. Site clean \\T\\ dry. Gauge \\T\\ site: 20g right AC. Flushed with 10 mL NS. 08:52 Placed in gown. Bed in low position. Call light in reach. Side rails up X 1. Provided mb9 Education on: press call light if needing anything. Client placed on continuous cardiac and pulse oximetry monitoring. NIBP monitoring applied. hall monitor on. 08:52 No provider procedures requiring assistance completed. mb9 09:08 Je Go MD is Attending Physician. [facility] 09:29 XRAY Chest (1 view) In Process Unspecified. EDMS 12:33 IV discontinued, intact, bleeding controlled, No redness/swelling at site. Pressure ko1 dressing applied. Patient maintains SpO2 saturation greater than 95% on room air. Administered Medications: 09:45 Drug: Thiamine IV 100 mg IV at bolus once Route: IV; Rate: bolus; Site: right mb9 antecubital; 10:09 Follow up: Response: No adverse reaction; IV Status: Completed infusion mb9 12:34 Follow up: Response: No adverse reaction; IV Status: Completed infusion; IV Intake: [id number] 10:07 Drug: NS 0.9% IV 1000 ml IV at 1 bolus Per protocol; to be given as a bolus over 60 mb9 minutes Route: IV; Rate: 1 bolus; Site: right antecubital; 12:34 Follow up: Response: No adverse reaction; IV Status: Completed infusion; IV Intake: ko1 1000ml Medication: 08:52 VIS not applicable for this client. mb9 Intake: 12:34 IV: 1000ml; Total: 1000ml. ko1 12:34 IV: 10ml; Total: 1010ml. ko1 Outcome: 10:02 Discharge ordered by . cam 12:34 Discharged to home ambulatory, ko1 12:34 Condition: stable 12:34 Discharge instructions given to patient, Instructed on discharge instructions, follow up and referral plans. medication usage, Demonstrated understanding of instructions, follow-up care, medications, Prescriptions given X 1, 12:38 Patient left the ED. ko1 Signatures: Dispatcher [employer] Je Cid MD MD cha Oliver, Kathy, RN RN ko1 Regla Callahan RN RN mb9
--- NOTE | 2024-09-07 10:02 | EDPHYS ---
Physician Documentation [facility] Name: Evens Carreon Age: 24 yrs Sex: Male : 2000 Arrival Date: 09/07/2024 Time: 08:43 Bed 7 Private MD: ED Physician Je Go HPI: 09/07 09:52 This 24 yrs old Male presents to ER via EMS with complaints of Chest Pain, cam Shortness Of Breath. 09:52 The patient or guardian reports chest pain that is located primarily in the anterior cam chest wall. Historical: - Allergies: 08:47 No Known Allergies; mb9 - Home Meds: 08:47 Adderall XR 30 mg Oral Capsule, ER 24 hr [Active]; mb9 - PMHx: 08:47 ADHD; mb9 - PSHx: 08:47 None; mb9 - Immunization history:: Adult Immunizations up to date. - Infectious Disease History:: Denies. - Social history:: Smoking status: Reported history of juuling and/or vaping. ROS: 09:56 Constitutional: Negative for fever, chills, and weight loss, Eyes: Negative for injury, cam pain, redness, and discharge, ENT: Negative for injury, pain, and discharge, Neck: Negative for injury, pain, and swelling, Respiratory: Negative for shortness of breath, cough, wheezing, and pleuritic chest pain, Abdomen/GI: Negative for abdominal pain, nausea, vomiting, diarrhea, and constipation, Back: Negative for injury and pain, : Negative for injury, bleeding, discharge, and swelling, MS/Extremity: Negative for injury and deformity, Skin: Negative for injury, rash, and discoloration, Neuro: Negative for headache, weakness, numbness, tingling, and seizure, Psych: Negative for depression, anxiety, suicide ideation, homicidal ideation, and hallucinations, Allergy/Immunology: Negative for hives, rash, and allergies, Endocrine: Negative for neck swelling, polydipsia, polyuria, polyphagia, and marked weight changes, Hematologic/Lymphatic: Negative for swollen nodes, abnormal bleeding, and unusual bruising, 09:56 Cardiovascular: Positive for palpitations, Exam: 09:56 Constitutional: This is a well developed, well nourished patient who is awake, alert, cam and in no acute distress. Head/Face: Normocephalic, atraumatic. Eyes: Pupils equal round and reactive to light, extra-ocular motions intact. Lids and lashes normal. Conjunctiva and sclera are non-icteric and not injected. Cornea within normal limits. Periorbital areas with no swelling, redness, or edema. ENT: Nares patent. No nasal discharge, no septal abnormalities noted. Tympanic membranes are normal and external auditory canals are clear. Oropharynx with no redness, swelling, or masses, exudates, or evidence of obstruction, uvula midline. Mucous membranes moist. Neck: Trachea midline, no thyromegaly or masses palpated, and no cervical lymphadenopathy. Supple, full range of motion without nuchal rigidity, or vertebral point tenderness. No Meningismus. Chest/axilla: Normal chest wall appearance and motion. Nontender with no deformity. No lesions are appreciated. Respiratory: Lungs have equal breath sounds bilaterally, clear to auscultation and percussion. No rales, rhonchi or wheezes noted. No increased work of breathing, no retractions or nasal flaring. Abdomen/GI: Soft, non-tender, with normal bowel sounds. No distension or tympany. No guarding or rebound. No evidence of tenderness throughout. Back: No spinal tenderness. No costovertebral tenderness. Full range of motion. Male : Normal genitalia with no discharge or lesions. Skin: Warm, dry with normal turgor. Normal color with no rashes, no lesions, and no evidence of cellulitis. MS/ Extremity: Pulses equal, no cyanosis. Neurovascular intact. Full, normal range of motion. Neuro: Awake and alert, GCS 15, oriented to person, place, time, and situation. Cranial nerves II-XII grossly intact. Motor strength 5/5 in all extremities. Sensory grossly intact. Cerebellar exam normal. Normal gait. Psych: Awake, alert, with orientation to person, place and time. Behavior, mood, and affect are within normal limits. 09:56 Cardiovascular: Rate: tachycardic, actual rate is 103 bpm, Rhythm: regular, Pulses: Pulses are 4+ in bilateral radial, brachial, femoral, popliteal, posterior tibial and and dorsalis pedis arteries.. Heart sounds: normal, Edema: is not appreciated, JVD: is not appreciated, 09:56 ECG was reviewed by the Attending Physician. Vital Signs: 08:46 BP 133 / 88; Pulse 128; Resp 18; Temp 98; Pulse Ox 100% ; Weight 58.97 kg; Height 5 ft. mb9 4 in. ; Pain 8/10; 09:00 BP 124 / 73; Pulse 110; Resp 15; Pulse Ox 98% on R/A; ko1 09:47 BP 98 / 41; Pulse 103; Resp 14; Pulse Ox 98% ; ko1 10:15 BP 95 / 45; Pulse 98; Resp 14; Pulse Ox 99% ; ko1 12:33 BP 108 / 56; Pulse 92; Resp 16; Pulse Ox 99% ; ko1 08:46 Body Mass Index 22.31 (58.97 kg, 162.56 cm) mb9 08:46 Pain Scale: Adult mb9 MDM: 09:08 Medical Screening Exam initiated cam 09:58 Differential diagnosis: abnormal EKG, acute pericarditis, anxiety, coronary artery cam disease chest wall pain, Cholelithiasis costochondritis, pancreatitis, peptic ulcer disease, pulmonary embolus, stable angina, thoracic aortic disection, unstable angina. HEART Score: ECG:. MIGUELITO Risk Score: 1 - Recent [<24hrs] Severe Angina, TOTAL SCORE = 1. Data reviewed: vital signs, nurses notes, lab test result(s), EKG, radiologic studies, plain films. Consideration of Admission/Observation Escalation of care including admission/observation considered. I considered the following discharge prescriptions or medication management in the emergency department Medications were administered in the Emergency Department. See MAR. Independent interpretation of the following test(s) in the Emergency Department EKG: See my EKG interpretation above. Test considered but Not performed: CT: no ct chest. Historians other than the Patient: pt well informed. 09/07 09: Order name: Basic Metabolic Panel; Complete Time: 09:50 mb9 09/07 09:01 Order name: CBC with Diff; Complete Time: 09:50 mb9 09/07 09:01 Order name: Troponin HS; Complete Time: :50 mb9 09/07 09:01 Order name: ETOH Level; Complete Time: :50 mb9 09/07 09:22 Order name: Acetaminophen [facility] 09/07 09:22 Order name: Hepatic Function [facility] 09/07 09:22 Order name: PT-INR; Complete Time: 10: [facility] 09/07 09:22 Order name: Ptt, Activated; Complete Time: 10: cam 09/07 09:22 Order name: Salicylate cam 09/07 09:01 Order name: XRAY Chest (1 view); Complete Time: 10:9 09/07 09:01 Order name: Cardiac monitoring; Complete Time: 09:9 09/07 09:01 Order name: EKG - Nurse/Tech; Complete Time: 09:02 mb9 09/07 09:01 Order name: IV Saline Lock; Complete Time: : mb9 09/07 09:01 Order name: Labs collected and sent; Complete Time: 09:9 09/07 09:01 Order name: O2 Per Protocol; Complete Time: : mb9 09/07 09:01 Order name: O2 Sat Monitoring; Complete Time: :9 09/07 09:22 Order name: Suicide Screening ([place]); Complete Time: 09:23 [facility] EC:56 Rate is 118 beats/min. Rhythm is regular. QRS [place] is Normal. [place] interval is normal. cam QRS interval is normal. QT interval is normal. No Q waves. T waves are Normal. No ST changes noted. Clinical impression: Sinus tachycardia. Interpreted by me. Reviewed by me. Administered Medications: 09:45 Drug: Thiamine IV 100 mg IV at bolus once Route: IV; Rate: bolus; Site: right mb9 antecubital; 10:09 Follow up: Response: No adverse reaction; IV Status: Completed infusion mb9 12:34 Follow up: Response: No adverse reaction; IV Status: Completed infusion; IV Intake: [id number] 10:07 Drug: NS 0.9% IV 1000 ml IV at 1 bolus Per protocol; to be given as a bolus over 60 mb9 minutes Route: IV; Rate: 1 bolus; Site: right antecubital; 12:34 Follow up: Response: No adverse reaction; IV Status: Completed infusion; IV Intake: ko1 1000ml Disposition Summary: 09/07/24 10:02 Discharge Ordered Notes: Location: Home cam Problem: new cam Symptoms: have improved cam Condition: Stable cam Diagnosis - Chest pain, unspecified cam - Alcohol abuse with intoxication cam - Alcohol use, unspecified cam Followup: cam - With: Private Physician - When: 2 - 3 days - Reason: Recheck today's complaints, Continuance of care, Re-evaluation by your physician Discharge Instructions: - Discharge Summary Sheet cam - Alcohol Intoxication cam - Nonspecific Chest Pain, Adult cam - Alcohol Intoxication, [id number] cam - Nonspecific Chest Pain, Adult, [id number] cam Forms: - Medication Reconciliation Form cam - Antibiotic Education cam - Prescription Opioid Use cam - Patient Portal Instructions cam - Leadership Thank You Letter cam - Work release form mb9 Prescriptions: - Pepcid 20 mg Oral Tablet - take 1 tablet ORAL route every 12 hours for 10 days; 20 tablet; Refills: 0, cam Product Selection Permitted Signatures: Dispatcher [employer] EDMS Je Go MD MD cha Wilkerson, Regla Jean RN RN mb9 Carmen Milligan RN ko1 Corrections: (The following items were deleted from the chart) 09:02 09:02 BASIC METABOLIC PANEL+C.LAB.BRZ ordered. EDMS EDMS 09:02 09:02 CBC+H.LAB.BRZ ordered. EDMS EDMS 09:02 09:02 Troponin High Sensitivity+C.LAB.BRZ ordered. EDMS EDMS 09:02 09:02 Chest Single View+RAD.RAD.BRZ ordered. EDMS EDMS 09:02 09:02 ETHANOL+C.LAB.BRZ ordered. EDMS EDMS 09:23 09:23 ACETAMINOPHEN+C.LAB.BRZ ordered. EDMS EDMS 09:23 09:23 HEPATIC FUNCTION+C.LAB.BRZ ordered. EDMS EDMS 09:23 09:23 PROTIME (+INR)+COAG.LAB.BRZ ordered. EDMS EDMS 09:23 09:23 PTT, ACTIVATED+COAG.LAB.BRZ ordered. EDMS EDMS 09:23 09:23 SALICYLATE+C.LAB.BRZ ordered. EDMS EDMS 09:23 09:23 Urinalysis+U.LAB.BRZ ordered. EDMS EDMS 09:23 09:23 URINE DRUG SCREEN+UC.LAB.BRZ ordered. EDMS EDMS
[2024-09-07] MEDS ORDERED: NA CHLORIDE 0.9% 1,000 ML ONE (10:06)
[2024-09-07 10:59] LABS: ALT/SGPT 22 U/L (16-61); Albumin 4.2 g/dL (3.4-5.0); Albumin/Globulin Ratio 1.1 (1.1-1.8); Alkaline Phosphatase 66 U/L (45-117); Bilirubin Total 0.3 mg/dL (0.2-1.0); Globulin 3.9 g/dL (2.3-3.5); Protein, Total 8.1 g/dL (6.4-8.2)
[2024-09-07 11:03] LABS: AST/SGOT 19 U/L (15-37); Bilirubin Direct < 0.2 mg/dL (0-0.2); Bilirubin Indirect, Calculated 0.1 mg/dL (0.2-0.8)
--- NOTE | 2024-09-07 14:10 | EKG ---
Test Date: 2024-09-07 Test Time: 08:54:10 Alignment Specialist: ERNESTO MEASUREMENT RESULTS: Intervals: Rate: 118 NM: 130 QRSD: 78 QT: 318 QTc: 445 [place]: P: 59 NM: 130 QRS: 70 T: 43 INTERPRETIVE STATEMENTS: Sinus tachycardia Otherwise normal ECG Electronically Signed On 09-07-24 14:09:16 CDT by Cliff Del Toro
[2024-09-07 22:28] VITALS: TEMP 98
[2024-09-07 22:31] VITALS: O2SAT 99
[2024-09-07 22:32] VITALS: BP 108/56
== END 2024-09-07 12:38 | disposition home or self-care (01) ==
LOC: ER 08:43
DX: R07.9 Chest pain, unspecified (principal); F10.129 Alcohol abuse with intoxication, unspecified
CPT/HCPCS: 36415; 71045; 80048; 80076; 80143; 80179; 82077; 84484; 85025; 85610; 85730; 93005; 96361; 96365; 99285; J3411; J7030

== ENCOUNTER 2024-10-04 06:38 | Emergency (ER) | payer SELFPAY ==
--- OUTSIDE RECORDS SUMMARY | 2024-10-04 06:41 | XMS REPORT | Continuity of Care Document ---
Author Name Unknown Address [address] [facility] [address] [place] [address] [facility] thconnect Address 1200 [facility] [address] [place] [address] Care Team Providers Care Evidence Custodian Name Role Phone Chace Gage Attending Clinician [...] s DA Active U 04-15 00:00: 00 [facility] Encounters Start Date/Time End Date/Time Encounter Type Admission Type Attending Clinicians Care Facility Care Department Encounter ID Source 2024-06-19 06:25:00 2024-06-19 09:35:00 Emergency EM Chace Gage [facility] [place] [id number] [facility] 2024-05-06 03:11:00 2024-05-06 06:11:00 Emergency [facility] [place] [id number] 19 [facility] 2024-04-15 07:42:00 2024-04-15 10:15:00 Emergency EM Napoleon [facility] [place] [id number] [facility] 2023-10-02 09:25:00 2023-10-02 11:18:00 Emergency Department Patient Visit [facility] [id number]. [id number] 2424-06-04 09:16:00 2023-04-17 11:39:00 Emergency Department Patient Visit [facility] [id number]. [id number] Results Test Description Test Time Test Comments Results Result Co mments Source BASIC METABOLIC [id number] 08:22:00* Test Item Value Reference Range Interpretation [...] interpret this result as normal/abnormal. HEPATIC FUNCTION [id number] 08:22:00* Test Item Value Reference Range Interpretation [...] code = ALKP) 66 U/L 46.00-116.00 N [id number] 08:22:00* Test Item Value Reference Range Interpretation Comme nts LIPASE (test code = LIP) 37 U/L 12.0-53.0 N DRUGS OF ABUSE SCREEN [id number] 08:14:00* Test Item Value Reference Range Interpretation [...] when preliminary positiveresults are used. CBC W/O [id number] 08:03:00* Test Item Value Reference Range Interpretation [...] MPV) 9.2 fL 7.6-10.4 N TROP-I HIGH [id number] 06:00:00* Test Item Value Reference Range Interpretation [...] URL. These results were obtained using [employer] IM TnIHreagent. Results from different methodologies should not becompared to one another as quantitative results and URLs mayvary by method. NOTE: a bias of less than or equal to 10% may occur forthese substances: Biotin (3500 ng/mL) Cholesterol (500 mg/dL)Protein Albumin (6 g/dL)Protein Gamma Globulin (2.5 g/dL)Total Protein (12 g/dL) - CT ANGIO [id number] 05:39:00 [facility] : 2000 Sex: M PatientName: LENA RAMIREZ Unit No: [id number] EXAMS: CPT CODE: [id number] CT ANGIO CHEST 30817 Radiation Dose CTDIVOL = 28.07 (mGy): DLP [...] acute chest findings. COMMENTS: Consistent with the [place] [employer]'s Incidental Findings Committee white paper (J Am Xi Radiol 2018): Any incidental renal lesion less than 1 cm or classified as too small to characterize, or any incidental cystic renal lesion characterized assimple-appearing, is likely benign. No follow-up imaging is recommended for these lesions per consensus recommendations based on imaging criteria. [facility] [facility] NAME: [address] PHYS: Chucky [place] [address] : 2000 AGE: 23 SEX: M LOC: B.ERS PHONE #: [phone] EXAM DATE: 05/06/2024 STATUS: REG ER FAX #: [phone] #: D/C DT PAGE 1 Signed Report (CONTINUED) Patient Name: LENA RAMIREZ Unit No: [id number] EXAMS: CPT CODE: [id number] CT ANGIO CHEST 23479 (Continued) at 0539 Reported and signed by: Jalil Grider MD CC: Billie Bowles NP; Chucky Cavanaugh MD Dictated Date/Time: 05/06/2024 (05) Technologist: Farrah Patricio CTDI: DLP: Trnscrpt: 05/06/2024 (0539) [email or web address] [facility] NAME: [address] PHYS: Chucky [place] [address] : 2000 AGE: 23 SEX: M LOC: B.ERS PHONE #: [phone] EXAM DATE: 05/06/2024 STATUS: REG ER FAX #: [phone] RAD #: D/C DT PAGE 2 Signed Report Patient Name: LENA RAMIREZ Unit No: [id number] EXAMS: CPT CODE: [id number] CTANGIO CHEST 96616 (Continued) Orig Print D/T: S: 05/06/2024 (0539) [facility] [place] NAME: LENA RAMIREZ [address] [place] [address] Blvd PHYS: Chucky Madrigal MD, [place] [id number] : 2000 AGE: 23SEX: M LOC: B.ERS PHONE #: [phone] EXAM DATE: 05/06/2024 STATUS: REG ER FAX #: [phone] RAD #: D/C DT PAGE 3 Signed ReportTROP-I HIGH [id number] 04:55:00* Test Item Value Reference Range Interpretation [...] URL. These results were obtained using [employer] IM TnIHreagent. Results from different methodologies should not becompared to one another as quantitative results and URLs mayvary by method. NOTE: a bias of less than or equal to 10% may occur forthese substances: Biotin (3500 ng/mL) Cholesterol (500 mg/dL)Protein Albumin (6 g/dL)Protein Gamma Globulin (2.5 g/dL)Total Protein (12 g/dL) [id number] 04:55:00* Test Item Value Reference Range Interpretation Comme nts LIPASE (test code = LIP) 44 Unit/L 12-53 N COMPREHENSIVE METABOLIC [id number] 04:55:00* Test Item Value Reference Range Interpretation [...] ode = CK) 143 Unit/L 34-171 N [id number] 04:55:00* Test Item Value Reference Range Interpretation Comme nts MAGNESIUM (test code = MAG) 2.0 MG/DL 1.8-2.4 N [id number] 04:55:00* Test Item Value Reference Range Interpretation Comme nts ALCOHOL (test code = ALC) 275 MG/DL 0-10 H MEDICAL ALCOHOL RESULTS. SITE WAS PREPPED WITH BETADINE. <10 MG/DL ARE CONSIDERED NEGATIVE. >400 MG/DL MAY BE FATAL.RESULTS FOR MEDICAL USE ONLY. NOT TO BE USED FOR FORENSIC PURPOSES. B-TYPE NATRIURETIC [id number] 04:55:00* Test Item Value Reference Range Interpretation Comme nts B-TYPE NATRIURETIC PEPTIDE ( test code = BNP) 2.1 PG/ML 0.00-100.00 N DRUGS OF ABUSE SCREEN [id number] 04:40:00* Test Item Value Reference Range Interpretation [...] interpret this result as normal/abnormal. CBC W/AUTO [id number] 04:31:00* Test Item Value Reference Range Interpretation [...] K/mm3 0.00-0.05 N - XR CHEST 1 [id number] 03:51:00 [facility] : 2000 Sex: M FAX: Billie Mcconnell NP [phone] [place]: St: PRE FAX: Chucky Azevedo MD Patient Name: LENA RAMIREZ Unit No: [id number] EXAMS: CPT CODE: [id number] XR CHEST 1 V 24176 PROCEDURE INFORMATION: Exam: XR Chest Exam date [...] by: Duc Owen MD CC: Billie Bowles NP;Chucky Mason MD Dictated Date/Time: 05/06/2024 (0351)Technologist: RAISSA GRIMM Transcribed Date/Time: 05/06/2024 (035) By: [email or web address] Orig Print D/T: S: 05/06/2024 (035) REBEKA Buck NAME:LENA RAMIREZ [address] [place] [address] Blvd PHYS: Chucky Madrigal MD, [place] [address] : 2000 AGE: 23 SEX: M LOC: B.ERS PHONE #: [phone] EXAM DATE: 05/06/2024 STATUS: PRE ER FAX #: [phone] RAD NO: DC Dt: PAGE 1 Signed ReportTROP-I HIGH [id number] 09:50:00* Test Item Value Reference Range Interpretation [...] URL. These results were obtained using [employer] IM TnIHreagent. Results from different methodologies should not becompared to one another as quantitative results and URLs mayvary by method. NOTE: a bias of less than or equal to 10% may occur forthese substances: Biotin (3500 ng/mL) Cholesterol (500 mg/dL)Protein Albumin (6 g/dL)Protein Gamma Globulin (2.5 g/dL)Total Protein (12 g/dL) BASIC METABOLIC [id number] 08:51:00* Test Item Value Reference Range Interpretation [...] interpret this result as normal/abnormal. TROP-I HIGH [id number] 08:51:00* Test Item Value Reference Range Interpretation [...] URL. These results were obtained using [employer] IM TnIHreagent. Results from different methodologies should not becompared to one another as quantitative results and URLs mayvary by method. NOTE: a bias of less than or equal to 10% may occur forthese substances: Biotin (3500 ng/mL) Cholesterol (500 mg/dL)Protein Albumin (6 g/dL)Protein Gamma Globulin (2.5 g/dL)Total Protein (12 g/dL) - XR CHEST 1 [id number] 08:38:00 [facility] : 2000 Sex: M FAX: Patsy Edgar APRNNBethany [place]: E St: REG Patient Name: LENA RAMIREZ Unit No: [id number] EXAMS: CPT CODE: [id number] XR CHEST1 V 00907 PROCEDURE INFORMATION: Exam: XR Chest Exam date [...] [email or web address] Orig Print D/T: S: 04/15/2024 (0839) [facility] Paula NAME: LENA RAMIREZ [address] [place] [address] PHYS: Patsy Babb, [place] [address] : 2000 AGE: 23 SEX: M LOC: B.ERS PHONE #: [phone] EXAM DATE: 04/15/2024 STATUS: REG ER FAX #: [phone] RAD NO: DC Dt: PAGE 1 Signed ReportCBC W/O [id number] 08:32:00* Test Item Value Reference Range Interpretation [...] Notes Date/Time Note Provider Source 2024-06-19 09:06:00 [facility] Liv Buck ([facility]) EMERGENCY PROVIDER REPORT REPORT#:[id number] REPORT STATUS: Signed DATE:06/19/24 TIME: 905 PATIENT: LENA RAMIREZ UNIT #: [id number] ROOM/BED: AGE: 23 SEX: M PCP PHYS: Undefined Provider SERVICE AUTHOR: Corby Rhodes * ALL edits or amendments must be made on the electronic/computer document * RhodesCorby Pinto 06/19/24 0906: HPI-Chest Pain Under 40 Free [...] Temp 36.9 06/19 641 Pulse 127 06/19 0641 Resp 16 06/19 641 Last Documented: Result Date Time Pulse Ox 99 / 1016 B/P 104/58 06/19 900 B/P Mean 75 06/19 09 Pulse 94 / 0900 Resp 18 06/19 0900 O2 Delivery Room air 06/19 641 Temp 36.9 06/19 0641 Review of Vital [...] Report Impression - Status: SIGNED Entered: 06/19/2024 5910 IMPRESSION: No acute findings. Impression By: [email or web address] Diya Roberto MD Re-Evaluation MDM Free Text MDM [...] 1,000 ML X1ED STA 06/19 0721 DC 08/ IV 06/19 0820 0801 Patient Discharge Departure Vital Signs/Condition Vital [...] Discharge Departure Discharge/Care Plan Referrals Resource Referral: [facility] Address: [address] [place] [address] [place] [address] Supervising Physician Note MidLv Saw Pt Alone I have reviewed the PA/MUSHROOM FARMER's note and plan of care. I was available for consultation as needed at all times during the patient's visit in the emergency department. I agree with the clinical impression, plan and disposition. at 1051 at 0917 RPT #:[id number] END OF REPORT [facility] 2024-05-06 05:57:00 [facility] ([facility]) EMERGENCY PROVIDER REPORT REPORT#:[id number] REPORT STATUS: Signed DATE:05/06/24 TIME: 556 PATIENT: LENA RAMIREZ UNIT #: [id number] ROOM/BED: AGE: 23 SEX: M PCP PHYS: Billie Bowles MUSHROOM FARMER SERVICE AUTHOR: Chucky Mason MD * ALL [...] Room air 05/06 316 Temp 98.0 05/06 031 Pulse 121 05/06 0316 Resp 16 05/06 0316 Last Documented: Result Date Time Pulse Ox 99 05/06 0533 Pulse 101 05/06 0533 Resp 21 05/06 0533 B/P 142/88 05/06 0355 B/P Mean 109 05/06 0355 O2 Delivery Room air 05/06 0316 Temp 98.0 05/06 0316 Review of Vital Signs Reviewed Basic Physical [...] % (Auto) (14.1 - 45.4 %) 41.5 Terrell % (Auto) (2.5 - 11.7 %) 7.5 Eos % (Auto) (0.0 - 6.2 %) 0.1 Baso % (Auto) (0.0 - 2.6 %) 0.4 Gran # (2.0 - 13.7 k/mm3) 3.94 Lymph # (Auto) (0.6 - 3.8 K/mm3) 3.26 Terrell # (Auto) (0.11 - 0.59 K/mm3) 0.59 [...] RADIOLOGY - XR CHEST 1 V 05/06 3981 Report Impression - Status: SIGNED Entered: 05/06/2024 9307 IMPRESSION: No radiographically identified acute findings in the chest. Impression By: [email or web address] - Duc Owen MD CAT SCAN - CT ANGIO CHEST 05/06 5725 Report Impression - Status: SIGNED Entered: 05/06/2024 5808 IMPRESSION: 1. No evidence of pulmonary embolism. 2. No acute chest findings. COMMENTS: Consistent with the [place] [employer]'s Incidental Findings Committee white [...] 0437 DC 05/06 IV 05/06 0438 0447 Electrolytic, Caloric, And Brayden Sig/Adelso Start [...] 316 Temp 98.0 05/06 316 Pulse 121 05/066 Resp 16 05/06 316 Last Documented: Result Date Time Pulse Ox 99 05/06 0533 Pulse 101 05/06 0533 Resp 21 05/06 0533 B/P 142/88 05/06 0355 B/P Mean 109 05/06 0355 O2 Delivery Room air 05/06 031 Temp 98.0 05/06 0316 All vital signs available at the time of this entry have been reviewed. Clinical Impression Clinical Impression Primary Impression: Chest pain Secondary Impressions: Alcohol intoxication Disposition Decision Discharge )( Discharged to Home Yes )( Time 0600 )( Date 05/06/24 Discharge/Care Plan Patient Instructions ED Alcohol Intoxication, ED Chest Pain, Uncertain Cause Referrals Provider Referral: Deepthi Patel MD Follow-Up: 2-3 Days Address: [address] [place] [address] [address] [place] [phone] Resource Referral: [facility] Follow-Up: 2-3 Days Address: [address] [place] [address] [place] [phone] Departure Forms TIPPO PCP LIST at 2306 RPT #:[id number] END OF REPORT [facility] 2024-04-15 08:45:00 [facility] ([facility]) EMERGENCY PROVIDER REPORT REPORT#:[id number] REPORT STATUS: Signed DATE:04/15/24 TIME: 0845 PATIENT: LENA RAMIREZ UNIT #: [id number] ROOM/BED: AGE: 23 SEX: M PCP PHYS: Billie Bowles MUSHROOM FARMER SERVICE AUTHOR: Patsy Edgar APRNNP * ALL [...] estrogen use, Unilateral leg swelling. PERC Result Mckinney PE crit low risk, PERC rule not [...] Pulse Ox 99 04/15 0744 B/P 144/76 / 0744 B/P Mean 98 04/15 0744 Temp 98.0 04/15 0744 Pulse 111 / 0744 Resp 18 04/15 0744 Last Documented: Result Date Time Pulse Ox 96 04/15 0900 Pulse 89 / 0900 Resp 20 04/15 0900 B/P 140/79 / 0804 B/P Mean 104 / 0804 Temp 98.0 04/15 0744 Review of [...] Report Impression - Status: SIGNED Entered: 04/15/2024 0864 IMPRESSION: No acute cardiopulmonary findings. Impression By: [email or web address] - Darshan Russell MD Re-Evaluation MDM Free [...] 1,000 ML X1ED STA 04/15 0749 DC / IV 04/15 0848 0800 Differential Diagnosis )( [...] Pulse Ox 96 04/15 0900 Pulse 89 / 0900 Resp 20 04/15 0900 B/P 140/79 [...] Discharge Departure Discharge/Care Plan Referrals Resource Referral: [facility] Address: [address] [place] [address] [place] [address] Supervising Physician Note MidLv Saw Pt Alone I have reviewed the PA/MUSHROOM FARMER's note and plan of care. I was available for consultation as needed at all times during the patient's visit in the emergency department. I agree with the clinical impression, plan and disposition. at 1005 at 0926 RPT #:[id number] END OF REPORT [facility]
[2024-10-04] MEDS ORDERED: MAGNES/ALUMIN/SIMET 30ML UCUP ONE (08:08)
[2024-10-04] MEDS ORDERED: LIDOCAINE VISCOUS 2% 10ML ORAL SOLN ONE (08:08)
[2024-10-04] MEDS ORDERED: ONDANSETRON 4 MG/2 ML VIAL ONE (08:08)
[2024-10-04] MEDS ORDERED: FAMOTIDINE 20 MG/2 ML VIAL IV ONE (08:08)
[2024-10-04] MEDS ORDERED: NA CHLORIDE 0.9% 1,000 ML ONE (08:09)
[2024-10-04 08:18] LABS: Absolute Monocytes 0.4 K/uL (0.1-1.3); Absolute Neutrophil 2.5 K/uL (1.8-8.0); Basophils % 0.4 % (0-1.3); Eosinophils % 0.7 % (0-4.4); Hemoglobin 14.7 g/dL (13.6-17.9); Lymphocytes % 40.7 % (15.3-44.8); MCH 29.2 pg (27.0-35.0); MCHC 33.4 g/dL (32.0-36.0); MCV 87.5 fL (80-100); Monocytes % 8.2 % (3.3-12.3); Nucleated Red Blood Cells % 0.1 % (0-0); Platelets 345 thou/uL (152-406); RBC Red Blood Cell Count 5.03 M/uL (4.33-5.43); Red Cell Distribution Width 14.5 % (12.1-15.2)
[2024-10-04 08:26] LABS: Albumin 3.9 g/dL (3.4-5.0); Anion Gap 8.8 mEq/L (5.0-15.0); Bilirubin Total 0.3 mg/dL (0.2-1.0); Potassium 3.8 mEq/L (3.5-5.1); Protein, Total 7.9 g/dL (6.4-8.2)
--- NOTE | 2024-10-04 10:10 | ER ---
Nurse's Notes [facility] Name: Evens Carreon Age: 24 yrs Sex: Male : 2000 Arrival Date: 10/04/2024 Time: 06:38 Bed 11 Private MD: Diagnosis: Acute gastritis without bleeding Presentation: 10/04 06:44 Chief complaint: Patient states: started drinking yesterday at 2230. last drink 0530 lg3 this morning. epigastric pain onset 0500. 324 mg ASA administered CIVIL MANAGER BGL 130. Coronavirus screen: Client denies travel out of the [place] in the last 14 days. At this time, the client does not indicate any symptoms associated with coronavirus-19. Ebola Screen: No symptoms or risks identified at this time. Initial Sepsis Screen: Does the patient meet any 2 criteria? No. Patient's initial sepsis screen is negative. Does the patient have a suspected source of infection? No. Patient's initial sepsis screen is negative. Risk Assessment: Do you want to hurt yourself or someone else? Patient reports no desire to harm self or others. Onset of symptoms was October 04, 2024. 06:44 Method Of Arrival: EMS: [facility] lg3 06:44 Acuity: JOVANA 3 lg3 06:44 Care prior to arrival: Medication(s) given: ASA, 325 mg. lg3 Triage Assessment: 06:47 General: Appears in no apparent distress. comfortable, Behavior is calm, cooperative. lg3 Pain: Complains of pain in epigastric area. EENT: No deficits noted. No signs and/or symptoms were reported regarding the EENT system. Neuro: No deficits noted. Calderon Agitation-Sedation Scale (RASS): 0 - Alert and Calm Level of Consciousness is awake, alert, obeys commands, Oriented to person, place, time, situation. Cardiovascular: No deficits noted. Denies chest pain, shortness of breath, Capillary refill < 3 seconds Clubbing of nail beds is absent JVD is absent Patient's skin is warm and dry. Respiratory: No deficits noted. Airway is patent Respiratory effort is even, unlabored, Respiratory pattern is regular, symmetrical. GI: Abdomen is flat, non-distended, Reports epigastric pain. : No signs and/or symptoms were reported regarding the genitourinary system. Derm: No deficits noted. No signs and/or symptoms reported regarding the dermatologic system. Skin is intact, is healthy with good turgor, Skin is dry, Skin is normal, Skin temperature is warm. Musculoskeletal: No deficits noted. No signs and/or symptoms reported regarding the musculoskeletal system. Circulation, motion, and sensation intact. Range of motion: intact in all extremities. Historical: - Allergies: 06:47 No Known Allergies; lg3 - Home Meds: 06:47 Adderall XR 30 mg Oral Capsule [Active]; lg3 - PMHx: 06:47 adhd; lg3 - PSHx: 06:47 None; lg3 - Immunization history:: Adult Immunizations up to date. - Infectious Disease History:: Denies. - Social history:: Smoking status: Reported history of juuling and/or vaping. Patient uses alcohol, patient/guardian reports recent binge of alcohol consumption. Patient/guardian denies using street drugs. - Family history:: not pertinent. Screenin:30 Abuse screen: Denies threats or abuse. Denies injuries from another. Nutritional ss screening: No deficits noted. Tuberculosis screening: Never had TB. Assessment: 07:30 Reassessment: PT admits to drinking a 12 pack of beer last night. General: Appears ss comfortable, Behavior is cooperative, anxious, tearful. Denies fever, feeling ill, fatigue, chills. General: Smells of alcohol. Pain: Complains of pain in epigastric area Pain currently is 3 out of 10 on a pain scale. Quality of pain is described as burning, Is continuous. Neuro: Level of Consciousness is awake, alert, obeys commands, Oriented to person, place, time, situation. Respiratory: Airway is patent Respiratory effort is even, unlabored, Respiratory pattern is regular, symmetrical. GI: Abdomen is flat, non-distended, Abd is soft X 4 quads Abdomen is tender to palpation in right lower quadrant. : Denies burning with urination, urinary frequency. EENT: Oral mucosa is moist. Derm: Skin is intact, is healthy with good turgor, Skin is dry, Skin is pink, warm \T\ dry. normal. 08:30 Reassessment: PT is resting at this time. Eyes closed. RR even and unlabored. ss 09:30 Reassessment: Patient appears in no apparent distress at this time. No changes from ss previously documented assessment. 10:20 Reassessment: Patient appears in no apparent distress at this time. Patient is alert, ss oriented x 3, equal unlabored respirations, skin warm/dry/pink. Patient denies pain at this time. Patient states feeling better. Patient states symptoms have improved. Vital Signs: 06:44 BP 135 / 96; Pulse 116; Resp 17 S; Temp 97.6(O); Pulse Ox 100% on R/A; Weight 58.97 kg lg3 (R); Height 5 ft. 5 in. (R); 10:19 BP 132 / 86; Pulse 92; Resp 16; Temp 98(TE); Pulse Ox 100% on R/A; Pain 0/10; ss 06:44 Body Mass Index 21.63 (58.97 kg, 165.1 cm) lg3 10:19 Pain Scale: Adult ss ED Course: 06:39 Patient arrived in ED. lg3 06:47 Triage completed. lg3 06:47 Arm band placed on right wrist. lg3 06:58 Merritt Bates MD is Attending Physician. rt 07:30 Safia Palencia, VENICE is Primary Nurse. ss 07:30 Patient has correct armband on for positive identification. Bed in low position. ss 08:04 HIV Ag/Ab Combo Sent. ss 08:04 CBC with Diff Sent. ss 08:04 CMP Sent. ss 08:04 Lipase Sent. ss 08:04 Inserted saline lock: 22 gauge in right forearm, using aseptic technique. Blood ss collected. Flushed with 10 mL NS. 10:20 No provider procedures requiring assistance completed. IV discontinued, intact, ss bleeding controlled, No redness/swelling at site. Pressure dressing applied. Administered Medications: 08:21 Drug: Famotidine IVP 20 mg IVP once; dilute with 10 mL 0.9% NaCl; give over 2 minutes ss Route: IVP; Site: right antecubital; 10:06 Follow up: Response: No adverse reaction ss 08:21 Drug: Ondansetron IVP 4 mg IVP once; over 2 minutes Route: IVP; Site: right antecubital;ss 10:06 Follow up: Response: No adverse reaction ss 08:21 Drug: NS 0.9% IV 1000 ml IV at 1 bolus Per protocol; to be given as a bolus over 60 ss minutes Route: IV; Rate: 1 bolus; Site: right antecubital; 10:06 Follow up: IV Status: Completed infusion; IV Intake: 1000ml ss 08:21 Drug: GI Cocktail without - (Maalox PO 30 ml, Lidocaine Mucous Membrane 2 % 15 ss ml) PO once Route: PO; 10:07 Follow up: Response: No adverse reaction; Pain is decreased ss Medication: 07:30 VIS not applicable for this client. ss Intake: 10:06 IV: 1000ml; Total: 1000ml. ss Outcome: 10:10 Discharge ordered by . rt 10:20 Discharged to home ambulatory, 10:20 Condition: good 10:20 Discharge instructions given to patient, Instructed on discharge instructions, follow up and referral plans. Demonstrated understanding of instructions, follow-up care, 10:21 Patient left the ED. ss Signatures: Safia Palencia RN VENICE Leixe Ochoa RN RN lg3 Merritt Bates MD MD rt Corrections: (The following items were deleted from the chart) 06:52 06:44 Chief complaint: Patient states: started drinking yesterday at 2230. last drink lg3 0530 this morning. epigastric pain onset 0500. 324 mg ASA administered CIVIL MANAGER lg3
--- NOTE | 2024-10-04 10:10 | EDPHYS ---
Physician Documentation [facility] Name: Evens Carreon Age: 24 yrs Sex: Male : 2000 Arrival Date: 10/04/2024 Time: 06:38 Bed 11 Private MD: ED Physician Merritt Bates HPI: 10/04 07:33 This 24 yrs old Male presents to ER via EMS with complaints of Epigastric Pain. rt 07:33 Patient presents to the ED with epigastric pain, nausea, vomiting without hematemesis rt starting about 2 hours prior to arrival. Patient states that he consumed a large amount of alcohol throughout the night. Has had previous symptoms after consuming alcohol. The patient denies other acute complaints at this time, symptoms are moderate severity, no other aggravating or elevating factors. Of note, patient states that he had oral sex with a man he was reportedly HIV positive about 2 weeks ago. Is requesting HIV test. Denies any symptoms attributable to HIV.. Historical: - Allergies: 06:47 No Known Allergies; lg3 - Home Meds: 06:47 Adderall XR 30 mg Oral Capsule [Active]; lg3 - PMHx: 06:47 adhd; lg3 - PSHx: 06:47 None; lg3 - Immunization history:: Adult Immunizations up to date. - Infectious Disease History:: Denies. - Social history:: Smoking status: Reported history of juuling and/or vaping. Patient uses alcohol, patient/guardian reports recent binge of alcohol consumption. Patient/guardian denies using street drugs. - Family history:: not pertinent. ROS: 07:33 Constitutional: Negative for fever, chills, and weight loss, Cardiovascular: Negative rt for chest pain, palpitations, and edema, Respiratory: Negative for shortness of breath, cough, wheezing, and pleuritic chest pain, MS/Extremity: Negative for injury and deformity, Skin: Negative for injury, rash, and discoloration, Neuro: Negative for headache, weakness, numbness, tingling, and seizure, 07:33 Abdomen/GI: Positive for abdominal pain, nausea and vomiting, Exam: 07:33 Constitutional: This is a well developed, well nourished patient who is awake, alert, rt and in no acute distress. Head/Face: Normocephalic, atraumatic. Chest/axilla: Normal chest wall appearance and motion. Nontender with no deformity. No lesions are appreciated. Cardiovascular: Regular rate and rhythm with a normal S1 and S2. No gallops, murmurs, or rubs. Normal PMI, no JVD. No pulse deficits. Respiratory: Lungs have equal breath sounds bilaterally, clear to auscultation and percussion. No rales, rhonchi or wheezes noted. No increased work of breathing, no retractions or nasal flaring. Skin: Warm, dry with normal turgor. Normal color with no rashes, no lesions, and no evidence of cellulitis. MS/ Extremity: Pulses equal, no cyanosis. Neurovascular intact. Full, normal range of motion. Neuro: Awake and alert, GCS 15, oriented to person, place, time, and situation. Cranial nerves II-XII grossly intact. Motor strength 5/5 in all extremities. Sensory grossly intact. Cerebellar exam normal. Normal gait. 07:33 Abdomen/GI: Mild tenderness to the epigastrium without rebound, guarding, distention, Vital Signs: 06:44 BP 135 / 96; Pulse 116; Resp 17 S; Temp 97.6(O); Pulse Ox 100% on R/A; Weight 58.97 kg lg3 (R); Height 5 ft. 5 in. (R); 10:19 BP 132 / 86; Pulse 92; Resp 16; Temp 98(TE); Pulse Ox 100% on R/A; Pain 0/10; ss 06:44 Body Mass Index 21.63 (58.97 kg, 165.1 cm) lg3 10:19 Pain Scale: Adult ss MDM: 07:20 Medical Screening Exam initiated rt 10:14 Differential Diagnosis . Differential Diagnosis Gastritis, pancreatitis, electrolyte rt disturbance. Data reviewed: vital signs, nurses notes, lab test result(s). I considered the following discharge prescriptions or medication management in the emergency department Medications were administered in the Emergency Department. See MAR. Test considered but Not performed: CT: Benign abdominal examination, symptoms significantly improving with treatment in the ED, unremarkable labs. Do not believe that CT scan is indicated all pancreatitis, bowel obstruction, other acute surgical process.. Care significantly affected by the following Social Determinants of Health: Misuse of alcohol and/or drugs. Counseling: I had a detailed discussion with the patient and/or guardian regarding the historical points, exam findings, and any diagnostic results supporting the discharge/admit diagnosis, lab results, the need for outpatient follow up, to return to the emergency department if symptoms worsen or persist or if there are any questions or concerns that arise at home. Response to treatment: the patient's symptoms have markedly improved after treatment. 10/04 07:29 Order name: CBC with Diff; Complete Time: 08:49 rt 10/04 07:29 Order name: CMP; Complete Time: 08:49 rt 10/04 07:29 Order name: Lipase; Complete Time: 08:49 rt 10/04 07:29 Order name: HIV Ag/Ab Combo; Complete Time: 09:54 rt 10/04 07:29 Order name: IV Saline Lock; Complete Time: 08:04 rt 10/04 07:29 Order name: Labs collected and sent; Complete Time: 08:04 rt Administered Medications: 08:21 Drug: Famotidine IVP 20 mg IVP once; dilute with 10 mL 0.9% NaCl; give over 2 minutes ss Route: IVP; Site: right antecubital; 10:06 Follow up: Response: No adverse reaction ss 08:21 Drug: Ondansetron IVP 4 mg IVP once; over 2 minutes Route: IVP; Site: right antecubital;ss 10:06 Follow up: Response: No adverse reaction 08:21 Drug: NS 0.9% IV 1000 ml IV at 1 bolus Per protocol; to be given as a bolus over 60 ss minutes Route: IV; Rate: 1 bolus; Site: right antecubital; 10:06 Follow up: IV Status: Completed infusion; IV Intake: 1000ml 08:21 Drug: GI Cocktail without - (Maalox PO 30 ml, Lidocaine Mucous Membrane 2 % 15 ss ml) PO once Route: PO; 10:07 Follow up: Response: No adverse reaction; Pain is decreased ss Disposition Summary: 10/04/24 10:10 Discharge Ordered Notes: Location: Home rt Problem: new rt Symptoms: have improved rt Condition: Stable rt Diagnosis - Acute gastritis without bleeding rt Followup: rt - With: Private Physician - When: 2 - 3 days - Reason: Discharge Instructions: - Discharge Summary Sheet rt - Gastritis, Adult rt Forms: - Work release form ss - Medication Reconciliation Form rt - Antibiotic Education rt - Prescription Opioid Use rt - Patient Portal Instructions rt - Leadership Thank You Letter rt Signatures: Dispatcher Safia Cabral RN RN ss AbleLexie RN RN lg3 Merritt Bates MD MD rt
[2024-10-04 11:41] VITALS: O2SAT 100
[2024-10-04 11:47] VITALS: BP 132/86; TEMP 98
== END 2024-10-04 10:21 | disposition home or self-care (01) ==
LOC: ER 06:38
DX: K29.00 Acute gastritis without bleeding (principal)
CPT/HCPCS: 36415; 80053; 83690; 85025; 87389; 96361; 96374; 96375; 99284; J2405; J7030

== ENCOUNTER 2024-11-23 06:39 | Emergency (ER) | payer SELFPAY ==
--- OUTSIDE RECORDS SUMMARY | 2024-11-23 06:42 | XMS REPORT | Continuity of Care Document ---
Author Name Unknown Address [address] [facility] [address] [place] [address] [facility] thconnect Address [address] [facility] [address] [place] [address] Care Team Providers [employer] Engineer Name Role Phone Chace Gage Attending Clinician [...] s DA Active U 04-15 00:00: 00 [facility] Encounters Start Date/Time End Date/Time Encounter Type Admission Type Attending Clinicians Care Facility Care Department Encounter ID Source 2024-06-19 06:25:00 2024-06-19 09:35:00 Emergency EM Chace Gage [facility] [place] [id number] [facility] 2024-05-06 03:11:00 2024-05-06 06:11:00 [facility] [place] [id number] [facility] 2024-04-15 07:42:00 2024-04-15 10:15:00 Emergency EM Napoleon Baron [facility] [place] [id number] [facility] 2023-10-02 09:25:00 2023-10-02 11:18:00 Emergency Department Patient Visit [facility] [id number] 0647-06-04 09:16:00 2023-04-17 11:39:00 Emergency Department Patient Visit [facility] [id number] Results Test Description Test Time Test Comments Results Result Co mments Source BASIC METABOLIC [id number] 08:22:00* Test Item Value Reference Range Interpretation [...] interpret this result as normal/abnormal. HEPATIC FUNCTION [id number] 08:22:00* Test Item Value Reference Range Interpretation [...] code = ALKP) 66 U/L 46.00-116.00 N [id number] 08:22:00* Test Item Value Reference Range Interpretation Comme nts LIPASE (test code = LIP) 37 U/L 12.0-53.0 N DRUGS OF ABUSE SCREEN [id number] 08:14:00* Test Item Value Reference Range Interpretation [...] when preliminary positiveresults are used. CBC W/O [id number] 08:03:00* Test Item Value Reference Range Interpretation [...] MPV) 9.2 fL 7.6-10.4 N TROP-I HIGH [id number] 06:00:00* Test Item Value Reference Range Interpretation [...] URL. These results were obtained using Siemens Brighter Future Challenge IM TnIHreagent. Results from different methodologies should not becompared to one another as quantitative results and URLs mayvary by method. NOTE: a bias of less than or equal to 10% may occur forthese substances: Biotin (3500 ng/mL) Cholesterol (500 mg/dL)Protein Albumin (6 g/dL)Protein Gamma Globulin (2.5 g/dL)Total Protein (12 g/dL) - CT ANGIO [id number] 05:39:00 [facility] : 2000 Sex: M PatientName: LENA RAMIREZ Unit No: [id number] EXAMS: CPT CODE: [id number] CT ANGIO CHEST 19757 Radiation Dose CTDIVOL = 28.07 (mGy): DLP [...] acute chest findings. COMMENTS: Consistent with the [place] [employer]'s Incidental Findings Committee white paper (J Am Xi Radiol 2018): Any incidental renal lesion less than 1 cm or classified as too small to characterize, or any incidental cystic renal lesion characterized assimple-appearing, is likely benign. No follow-up imaging is recommended for these lesions per consensus recommendations based on imaging criteria. [facility] [place] NAME: [address] PHYS: Chucky [place]al [place] [address] : 2000 AGE: 23 SEX: M LOC: B.ERS PHONE #: [phone] EXAM DATE: 05/06/2024 STATUS: REG ER FAX #: [phone] #: D/C DT PAGE 1 Signed Report (CONTINUED) Patient Name: LENA RAMIREZ Unit No: [id number] EXAMS: CPT CODE: [id number] CT ANGIO CHEST 45500 (Continued) at 0539 Reported and signed by: Jalil Grider MD CC: Billie Bowles NP; Chucky Cavanaugh MD Dictated Date/Time: 05/06/2024 (05) Technologist: Farrah Patricio CTDI: DLP: Trnscrpt: 05/06/2024 (0539) [email or web address] [facility] [place] NAME: [address] PHYS: Chucky [place]al [place] [address] : 2000 AGE: 23 SEX: M LOC: B.ERS PHONE #: [phone] EXAM DATE: 05/06/2024 STATUS: REG ER FAX #: [phone] RAD #: D/C DT PAGE 2 Signed Report Patient Name: LENA RAMIREZ Unit No: [id number] EXAMS: CPT CODE: [id number] CTANGIO CHEST 94212 (Continued) Orig Print D/T: S: 05/06/2024 (0539) [facility] [place] NAME: LENA RAMIREZ [address] [place] [address] Blvd PHYS: Chucky Madrigal MD, [place] [id number] : 2000 AGE: 23SEX: M LOC: B.ERS PHONE #: [phone] EXAM DATE: 05/06/2024 STATUS: REG ER FAX #: [phone] RAD #: D/C DT PAGE 3 Signed ReportTROP-I HIGH [id number] 04:55:00* Test Item Value Reference Range Interpretation [...] URL. These results were obtained using Siemens AtellTigermed IM TnIHreagent. Results from different methodologies should not becompared to one another as quantitative results and URLs mayvary by method. NOTE: a bias of less than or equal to 10% may occur forthese substances: Biotin (3500 ng/mL) Cholesterol (500 mg/dL)Protein Albumin (6 g/dL)Protein Gamma Globulin (2.5 g/dL)Total Protein (12 g/dL) [id number] 04:55:00* Test Item Value Reference Range Interpretation Comme nts LIPASE (test code = LIP) 44 Unit/L 12-53 N COMPREHENSIVE METABOLIC [id number] 04:55:00* Test Item Value Reference Range Interpretation [...] ode = CK) 143 Unit/L 34-171 N [id number] 04:55:00* Test Item Value Reference Range Interpretation Comme nts MAGNESIUM (test code = MAG) 2.0 MG/DL 1.8-2.4 N [id number] 04:55:00* Test Item Value Reference Range Interpretation Comme nts ALCOHOL (test code = ALC) 275 MG/DL 0-10 H MEDICAL ALCOHOL RESULTS. SITE WAS PREPPED WITH BETADINE. <10 MG/DL ARE CONSIDERED NEGATIVE. >400 MG/DL MAY BE FATAL.RESULTS FOR MEDICAL USE ONLY. NOT TO BE USED FOR FORENSIC PURPOSES. B-TYPE NATRIURETIC [id number] 04:55:00* Test Item Value Reference Range Interpretation Comme nts B-TYPE NATRIURETIC PEPTIDE ( test code = BNP) 2.1 PG/ML 0.00-100.00 N DRUGS OF ABUSE SCREEN [id number] 04:40:00* Test Item Value Reference Range Interpretation [...] interpret this result as normal/abnormal. CBC W/AUTO [id number] 04:31:00* Test Item Value Reference Range Interpretation [...] K/mm3 0.00-0.05 N - XR CHEST 1 [id number] 03:51:00 [facility] : 2000 Sex: M FAX: Billie Mcconnell NP [phone] [place]: St: PRE FAX: Chucky Azevedo MD Patient Name: LENA RAMIREZ Unit No: [id number] EXAMS: CPT CODE: [id number] XR CHEST 1 V 12914 PROCEDURE INFORMATION: Exam: XR Chest Exam date [...] S: 05/06/2024 (035) REBEKA Buck NAME:LENA RAMIREZ [address] [place] [address] Blvd PHYS: Chucky Madrigal MD, [place] [address] : 2000 AGE: 23 SEX: M LOC: B.ERS PHONE #: [phone] EXAM DATE: 05/06/2024 STATUS: PRE ER FAX #: [phone] RAD NO: DC Dt: PAGE 1 Signed ReportTROP-I HIGH [id number] 09:50:00* Test Item Value Reference Range Interpretation [...] URL. These results were obtained using Siemens Brighter Future Challenge IM TnIHreagent. Results from different methodologies should not becompared to one another as quantitative results and URLs mayvary by method. NOTE: a bias of less than or equal to 10% may occur forthese substances: Biotin (3500 ng/mL) Cholesterol (500 mg/dL)Protein Albumin (6 g/dL)Protein Gamma Globulin (2.5 g/dL)Total Protein (12 g/dL) BASIC METABOLIC [id number] 08:51:00* Test Item Value Reference Range Interpretation [...] interpret this result as normal/abnormal. TROP-I HIGH [id number] 08:51:00* Test Item Value Reference Range Interpretation [...] URL. These results were obtained using Siemens Brighter Future Challenge IM TnIHreagent. Results from different methodologies should not becompared to one another as quantitative results and URLs mayvary by method. NOTE: a bias of less than or equal to 10% may occur forthese substances: Biotin (3500 ng/mL) Cholesterol (500 mg/dL)Protein Albumin (6 g/dL)Protein Gamma Globulin (2.5 g/dL)Total Protein (12 g/dL) - XR CHEST 1 [id number] 08:38:00 [facility] LE[facility] : 2000 Sex: M FAX: aPtsy Edgar APRNNBethany [place]: E St: REG Patient Name: LENA RAMIREZ Unit No: [id number] EXAMS: CPT CODE: [id number] XR CHEST1 V 85209 PROCEDURE INFORMATION: Exam: XR Chest Exam date [...] [id number] Orig Print D/T: S: 04/15/2024 (0839) REBEKA Buck NAME: J[address] PHYS: [place], [place] [address] : 2000 AGE: 23 SEX: M LOC: B.ERS PHONE #: [phone] EXAM DATE: 04/15/2024 STATUS: REG ER FAX #: [phone] RAD NO: DC Dt: PAGE 1 Signed ReportCBC W/O [id number] 08:32:00* Test Item Value Reference Range Interpretation [...]
[2024-11-23] MEDS ORDERED: LORazepam 2 MG/ML VIAL ONE (06:53)
[2024-11-23] MEDS ORDERED: NA CHLORIDE 0.9% 1,000 ML ONE (07:39)
[2024-11-23 08:53] LABS: Absolute Lymphocytes (CBC) 2.2 K/uL (0.7-4.9); Absolute Monocytes 0.4 K/uL (0.1-1.3); Absolute Neutrophil 2.7 K/uL (1.8-8.0); Basophils % 0.6 % (0-1.3); Eosinophils % 0.8 % (0-4.4); Hematocrit 39.5 % (39.6-49.0); Lymphocytes % 41.2 % (15.3-44.8); MCH 29.6 pg (27.0-35.0); MCV 89.8 fL (80-100); MPV 7.5 fL (7.6-11.3); Monocytes % 7.9 % (3.3-12.3); Neutrophils % 49.5 % (41.7-73.7); Nucleated Red Blood Cells % 0.1 % (0-0); Platelets 349 thou/uL (152-406); Red Cell Distribution Width 14.4 % (12.1-15.2)
[2024-11-23 08:57] LABS: PTT, Activated Partial Thromb 30.2 SECONDS (24.3-36.9); Protime INR 1.07
[2024-11-23 09:20] LABS: ALT/SGPT 23 U/L (16-61); AST/SGOT 12 U/L (15-37); Albumin 3.4 g/dL (3.4-5.0); Alkaline Phosphatase 49 U/L (45-117); BUN Blood Urea Nitrogen 4 mg/dL (7-18); Bicarbonate 26 mEq/L (21-32); Bilirubin Total 0.3 mg/dL (0.2-1.0); Globulin 3.3 g/dL (2.3-3.5); Glomerular Filtration Rate 105 ml/min (=/>90); Glucose Level 101 mg/dL (74-106); Protein, Total 6.7 g/dL (6.4-8.2); Sodium Level 144 mEq/L (136-145)
[2024-11-23 09:29] LABS: Bilirubin Direct < 0.2 mg/dL (0-0.2); Bilirubin Indirect, Calculated 0.1 mg/dL (0.2-0.8)
--- NOTE | 2024-11-23 09:37 | ER ---
Nurse's Notes [facility] Name: Evens Carreon Age: 24 yrs Sex: Male : 2000 Arrival Date: 11/23/2024 Time: 06:39 Bed 18 Private MD: Diagnosis: Alcohol intoxication Presentation: 11/23 06:51 Chief complaint: Patient states: CHEST PAIN (PRESSURE) AND SOB THAT BEGAN 1 HOUR AGAO. br2 Coronavirus screen: Client denies travel out of the [place] in the last 14 days. Ebola Screen: Patient denies exposure to infectious person. Initial Sepsis Screen: Does the patient meet any 2 criteria? RR > 20 per min. HR > 90 bpm. Does the patient have a suspected source of infection? No. Patient's initial sepsis screen is negative. Risk Assessment: Do you want to hurt yourself or someone else? Patient reports no desire to harm self or others. Onset of symptoms was November 23, 2024 at 06:00. 06:51 Method Of Arrival: EMS: [facility] br2 06:51 Acuity: JOVANA 3 br2 Triage Assessment: 06:51 General: Appears in no apparent distress. comfortable, Behavior is cooperative, br2 anxious. Pain: Complains of pain in mid-sternal area Pain does not radiate. Pain currently is 6 out of 10 on a pain scale. EENT: No signs and/or symptoms were reported regarding the EENT system. Neuro: Calderon Agitation-Sedation Scale (RASS): +1 Restless Level of Consciousness is awake, alert, obeys commands, Oriented to person, place, time, situation. Cardiovascular: Capillary refill < 3 seconds Rhythm is sinus tachycardia. Respiratory: Reports shortness of breath Breath sounds are clear bilaterally. GI: No signs and/or symptoms were reported involving the gastrointestinal system. : No signs and/or symptoms were reported regarding the genitourinary system. Derm: No signs and/or symptoms reported regarding the dermatologic system. Musculoskeletal: No signs and/or symptoms reported regarding the musculoskeletal system. Historical: - PMHx: 06:52 adhd; sp4 - Immunization history:: Adult Immunizations up to date. - Infectious Disease History:: Denies. - Family history:: not pertinent. - Social history:: Smoking status: Reported history of juuling and/or vaping. Patient uses alcohol, occasionally. Screenin:53 Abuse screen: Denies threats or abuse. Denies injuries from another. Nutritional ha1 screening: No deficits noted. Tuberculosis screening: No symptoms or risk factors identified. 06:53 [facility] ED Fall Risk Assessment (Adult) History of falling in the last 3 months, ha1 including since admission No falls in past 3 months (0 pts) Confusion or Disorientation No (0 pts) Intoxicated or Sedated No (0 pts) Impaired Gait No (0 pts) Mobility Assist Device Used No (0 pt) Altered Elimination Score/Fall Risk Level 0 - 2 = Low Risk Oriented to surroundings, Maintained a safe environment, Educated pt \T\ family on fall prevention, incl call for assistance when getting out of bed, Hourly rounding (assess needs \T\ fall precautionary measures) done. Assessment: 06:54 Reassessment: SEE TRIAGE ASSESSMENT. Pain: Pain began 1 hour ago. br2 07:30 Reassessment: Patient appears in no apparent distress at this time. Patient and/or db family updated on plan of care and expected duration. Pain level reassessed. General: Appears in no apparent distress. Behavior is drowsy. Neuro:. 08:43 Respiratory: Airway is patent Respiratory effort is even, unlabored, Respiratory db pattern is regular, symmetrical. 09:44 Reassessment: ATTEMPTED TO WAKE PATIENT UP. PATIENT NOT WANTING TO WAKE FULLY UP. db SHAKES HEAD YES AND NO. 11:26 Reassessment: Patient appears in no apparent distress at this time. Patient and/or db family updated on plan of care and expected duration. Pain level reassessed. ATTEMPTED TO WAKE PATIENT UP AGAIN PATIENT IS STILL SLEEPY. 12:07 Reassessment: Patient appears in no apparent distress at this time. Patient and/or db family updated on plan of care and expected duration. Pain level reassessed. General: Appears in no apparent distress. comfortable, Behavior is calm, cooperative. Pain: Denies pain. Vital Signs: 06:51 BP 138 / 103; Pulse 112; Resp 23; Temp 97.2(TE); Pulse Ox 100% on R/A; Weight 61.23 kg; br2 Height 5 ft. 5 in. ; Pain 6/10; 07:00 BP 112 / 72; Pulse 111; Resp 20; Pulse Ox 99% on R/A; db 07:35 BP 100 / 46; Pulse 98; Resp 18; Pulse Ox 96% on R/A; db 08:30 BP 95 / 54; Pulse 94; Resp 16; Pulse Ox 98% on R/A; db 09:30 BP 103 / 67; Pulse 85; Resp 17; Pulse Ox 100% on R/A; db 11:00 Pulse 65; Resp 16; Pulse Ox 97% ; db 11:50 BP 93 / 76; Pulse 79; Resp 18; Pulse Ox 100% on R/A; db 06:51 Body Mass Index 22.46 (61.23 kg, 165.1 cm) br2 06:51 Pain Scale: Adult br2 Milton Coma Score: 06:52 Eye Response: spontaneous(4). Motor Response: obeys commands(6). Verbal Response: sp4 oriented(5). Total: 15. ED Course: 06:40 Patient has correct armband on for positive identification. Bed in low position. Call ha1 light in reach. Side rails up X 1. 06:40 Client placed on continuous cardiac and pulse oximetry monitoring. NIBP monitoring ha1 applied. rehab care assistant on. 06:48 Patient arrived in ED. gm2 06:49 Sha Echavarria MD is Attending Physician. sp4 06:50 Corinne Yañez RN is Primary Nurse. br2 06:51 Maintain EMS IV. Dressing intact. Site clean \T\ dry. Gauge \T\ site: 20 G RAC. Flushed tam 1 with 10 mL NS. 06:52 Triage completed. br2 06:54 Maintain EMS IV. Dressing intact. Site clean \T\ dry. Gauge \T\ site: 20G RIGHT A/C. br 2 Flushed with 10 mL NS 1L NS INFUSING OF EMS ARRIVAL. 06:54 Provided Education on: PLAN OF CARE. br2 07:27 Attending Physician role handed off by Sha Echavarria MD sp3 07:27 Micheline Laguna MD is Attending Physician. sp3 08:40 Initial lab(s) drawn, by me, sent to lab. Patient maintains SpO2 saturation greater db than 95% on room air. 12:08 No provider procedures requiring assistance completed. IV discontinued, intact, db bleeding controlled, No redness/swelling at site. 12:08 Warm blanket given. Pillow given. db 12:45 Arm band placed on Patient placed in an exam room. db Administered Medications: 06:56 Drug: Ativan IVP 2 mg IVP once Route: IVP; Site: right antecubital; kj2 10:00 Follow up: Response: No adverse reaction db 07:30 Drug: NS 0.9% IV 1000 ml IV at 1000 ml once; to be given as a bolus over 60 minutes db Route: IV; Rate: 1000 ml; Site: right antecubital; 10:30 Follow up: Response: No adverse reaction; IV Status: Completed infusion; IV Intake: db 1000ml Medication: 06:54 VIS not applicable for this client. ha1 Intake: 10:30 IV: 1000ml; Total: 1000ml. db Outcome: 09:36 Discharge ordered by . sp3 12:08 Discharged to home ambulatory, db 12:08 Condition: stable 12:08 Discharge instructions given to patient, Instructed on discharge instructions, follow up and referral plans. 12:47 Patient left the ED. db Signatures: Micheline Laguna MD MD sp3 Susan Luevano, RN RN ha1 Malinda Marino, RN RN Sha Riddle MD MD sp4 Martina Cuellar gm2 Corinne Yañez RN RN br2 Judy Catherine RN RN kj2
--- NOTE | 2024-11-23 09:37 | EDPHYS ---
Physician Documentation [facility] Name: Evens Carreon Age: 24 yrs Sex: Male : 2000 Arrival Date: 11/23/2024 Time: 06:39 Bed 18 Private MD: ED Physician Micheline Laguna HPI: 11/23 06:49 This 24 yrs old Male presents to ER via Unassigned with complaints of Chest sp4 Pain, Dizziness, Shortness Of Breath. 06:50 Patient reports to 12 cans of beer last night did not sleep and developed anxiety this sp4 morning associated with chest pain and palpitations.. Historical: - PMHx: 06:52 adhd; sp4 - Immunization history:: Adult Immunizations up to date. - Infectious Disease History:: Denies. - Family history:: not pertinent. - Social history:: Smoking status: Reported history of juuling and/or vaping. Patient uses alcohol, occasionally. ROS: 06:52 Constitutional: Negative for fever, chills, and weight loss, positive anxiety positive sp4 alcohol use positive palpitations positive chest pain 06:52 All other systems are negative, Exam: 06:52 Constitutional: This is a well developed, well nourished patient who is awake, alert, sp4 and in no acute distress. Head/Face: Normocephalic, atraumatic. Eyes: Pupils equal round and reactive to light, extra-ocular motions intact. Lids and lashes normal. Conjunctiva and sclera are not injected. Cornea within normal limits. Periorbital areas with no swelling, redness, or edema. ENT: Nares patent. No nasal discharge, no septal abnormalities noted. Tympanic membranes are normal and external auditory canals are clear. Oropharynx with no redness, swelling, or masses, exudates, or evidence of obstruction, uvula midline. Mucous membranes moist. Neck: Trachea midline, no thyromegaly or masses palpated, and no cervical lymphadenopathy. Supple, full range of motion without nuchal rigidity, or vertebral point tenderness. Chest/axilla: Normal chest wall appearance and motion. Nontender with no deformity. No lesions are appreciated. Cardiovascular: Regular rate and rhythm with a normal S1 and S2. No gallops, murmurs, or rubs. Normal PMI, no JVD. No pulse deficits. Respiratory: Lungs have equal breath sounds bilaterally, clear to auscultation and percussion. No rales, rhonchi or wheezes noted. No increased work of breathing, no retractions or nasal flaring. Abdomen/GI: Soft, with normal bowel sounds. No distension or tympany. No guarding or rebound. No evidence of tenderness throughout. Back: No spinal tenderness. No costovertebral tenderness. Skin: Warm, dry with normal turgor. Normal color with no rashes, no lesions, and no evidence of cellulitis. MS/ Extremity: Pulses equal, no cyanosis. Neurovascular intact. Full, normal range of motion. Neuro: Awake and alert, GCS 15, oriented to person, place, time, and situation. Cranial nerves II-XII grossly intact. Motor strength 5/5 in all extremities. Sensory grossly intact. Psych: Awake, alert, with orientation to person, place and time. Behavior, mood, and affect are within normal limits 06:52 ECG was reviewed by the Attending Physician. EKG at 0 639 normal sinus rhythm rate 96 with sinus arrhythmia. Vital Signs: 06:51 BP 138 / 103; Pulse 112; Resp 23; Temp 97.2(TE); Pulse Ox 100% on R/A; Weight 61.23 kg; br2 Height 5 ft. 5 in. ; Pain 6/10; 07:00 BP 112 / 72; Pulse 111; Resp 20; Pulse Ox 99% on R/A; db 07:35 BP 100 / 46; Pulse 98; Resp 18; Pulse Ox 96% on R/A; db 08:30 BP 95 / 54; Pulse 94; Resp 16; Pulse Ox 98% on R/A; db 09:30 BP 103 / 67; Pulse 85; Resp 17; Pulse Ox 100% on R/A; db 11:00 Pulse 65; Resp 16; Pulse Ox 97% ; db 11:50 BP 93 / 76; Pulse 79; Resp 18; Pulse Ox 100% on R/A; db 06:51 Body Mass Index 22.46 (61.23 kg, 165.1 cm) br2 06:51 Pain Scale: Adult br2 [place] Coma Score: 06:52 Eye Response: spontaneous(4). Motor Response: obeys commands(6). Verbal Response: sp4 oriented(5). Total: 15. MDM: 07:25 Medical Screening Exam initiated sp4 08:34 Data reviewed: vital signs, nurses notes, fpc records, lab test result(s). ED sp3 course: Patient signed out to me by nighttime physician. Patient is a 24-year-old male presents with alcohol intoxication and anxiety. He received Ativan by night physician. Currently patient is sleeping and very minimally arousable presumably due to combination of the above. Vital signs are normal and pulse oxygenation is 96% on room air. We will also obtain general labs and tox screens. Disposition probable discharge once patient is more awake.. 09:35 ED course: Labs within normal limits alcohol at 204. We will discharge patient once sp3 arousable.. 11/23 07:21 Order name: Glucose, Ancillary Testing; Complete Time: 07:27 EDMS 11/23 08:33 Order name: Acetaminophen; Complete Time: 09:34 sp3 11/23 08:33 Order name: Basic Metabolic Panel; Complete Time: 09:34 sp3 11/23 08:33 Order name: CBC with Diff; Complete Time: 09:34 sp3 11/23 08:33 Order name: ETOH Level; Complete Time: 09:34 sp3 11/23 08:33 Order name: Hepatic Function; Complete Time: 09:34 sp3 11/23 08:33 Order name: PT-INR; Complete Time: 09:34 sp3 11/23 08:33 Order name: Ptt, Activated; Complete Time: 09:34 sp3 11/23 08:33 Order name: Salicylate; Complete Time: 09:34 sp3 11/23 06:50 Order name: Accucheck Blood Glucose; Complete Time: 07:07 sp4 11/23 06:54 Order name: EKG - Nurse/Tech; Complete Time: 06:54 ha1 11/23 08:33 Order name: Labs collected and sent; Complete Time: 08:44 sp3 EC:39 Rate is 96 beats/min. Rhythm is irregular, Sinus Rhythm. QRS Midway is Normal. ID sp4 interval is normal. QRS interval is normal. QT interval is normal. No Q waves. T waves are Normal. No ST changes noted. Clinical impression: Normal ECG. Interpreted by me. Reviewed by me. Administered Medications: 06:56 Drug: Ativan IVP 2 mg IVP once Route: IVP; Site: right antecubital; kj2 10:00 Follow up: Response: No adverse reaction db 07:30 Drug: NS 0.9% IV 1000 ml IV at 1000 ml once; to be given as a bolus over 60 minutes db Route: IV; Rate: 1000 ml; Site: right antecubital; 10:30 Follow up: Response: No adverse reaction; IV Status: Completed infusion; IV Intake: db 1000ml Disposition Summary: 11/23/24 09:36 Discharge Ordered Notes: Location: Home sp3 Condition: Stable sp3 Diagnosis - Alcohol intoxication sp3 Followup: sp3 - With: Private Physician - When: Upon discharge from the Emergency Department - Reason: Continuance of care Discharge Instructions: - Discharge Summary Sheet sp3 - Alcohol Intoxication sp3 Forms: - Medication Reconciliation Form sp3 - Antibiotic Education sp3 - Prescription Opioid Use sp3 - Patient Portal Instructions sp3 - Leadership Thank You Letter sp3 Signatures: Dispatcher [employer] Micheline Person MD MD sp3 Susan Luevano RN RN ha1 Malinda Marino RN RN Sha Riddle MD MD sp4 Corinne Yañez RN RN br2 Judy Catherine RN RN kj2 Corrections: (The following items were deleted from the chart) 08:34 08:34 ACETAMINOPHEN+C.LAB.BRZ ordered. EDMS EDMS 08:34 08:34 BASIC METABOLIC PANEL+C.LAB.BRZ ordered. EDMS EDMS 08:34 08:34 CBC+H.LAB.BRZ ordered. EDMS EDMS 08:34 08:34 ETHANOL+C.LAB.BRZ ordered. EDMS EDMS 08:34 08:34 HEPATIC FUNCTION+C.LAB.BRZ ordered. EDMS EDMS 08:34 08:34 PROTIME (+INR)+COAG.LAB.BRZ ordered. EDMS EDMS 08:34 08:34 PTT, ACTIVATED+COAG.LAB.BRZ ordered. EDMS EDMS 08:34 08:34 SALICYLATE+C.LAB.BRZ ordered. EDMS EDMS
[2024-11-23 12:56] VITALS: TEMP 97.2
[2024-11-23 13:03] VITALS: BP 93/76; O2SAT 100
== END 2024-11-23 12:47 | disposition home or self-care (01) ==
LOC: ER 06:39
DX: F10.129 Alcohol abuse with intoxication, unspecified (principal)
CPT/HCPCS: 36415; 80048; 80076; 80143; 80179; 82077; 82947; 85025; 85610; 85730; 96361; 96374; 99285; J7030

== ENCOUNTER 2025-08-26 08:21 | Emergency (ER) | payer SELFPAY ==
--- OUTSIDE RECORDS SUMMARY | 2025-08-26 08:25 | XMS REPORT | Continuity of Care Document ---
Author Name Unknown Address [address] [facility] [address] [place] [address] [facility] Address [address] [facility] [address] [place] [address] Care Team Providers Care Food Services Manager Name Role Phone Chace Gage Attending Clinician [...] s DA Active U 04-15 00:00: 00 [facility] Encounters Start Date/Time End Date/Time Encounter Type Admission Type Attending Clinicians Care Facility Care Department Encounter ID Source 2024-06-19 06:25:00 2024-06-19 09:35:00 Emergency EM Chace Gage [facility] [id number] 67 [facility] 2024-05-06 03:11:00 2024-05-06 06:11:00 Emergency EM Chucky Mason [facility] [id number] 19 [facility] 2024-04-15 07:42:00 2024-04-15 10:15:00 Emergency EM Napoleon Baron [facility] [id number] 75 [facility] 2023-10-02 09:25:00 2023-10-02 11:18:00 Emergency Department Patient Visit [place] [id number] 8300-06-04 09:16:00 2023-04-17 11:39:00 Emergency Department Patient Visit [facility] [id number] Results Test Description Test Time Test Comments Results Result Co mments Source BASIC METABOLIC [id number] 08:22:00* Test Item Value Reference Range Interpretation [...] interpret this result as normal/abnormal. HEPATIC FUNCTION [id number] 08:22:00* Test Item Value Reference Range Interpretation [...] code = ALKP) 66 U/L 46.00-116.00 N [id number] 08:22:00* Test Item Value Reference Range Interpretation Comme nts LIPASE (test code = LIP) 37 U/L 12.0-53.0 N DRUGS OF ABUSE SCREEN [id number] 08:14:00* Test Item Value Reference Range Interpretation [...] when preliminary positiveresults are used. CBC W/O [id number] 08:03:00* Test Item Value Reference Range Interpretation [...] MPV) 9.2 fL 7.6-10.4 N TROP-I HIGH [id number] 06:00:00* Test Item Value Reference Range Interpretation [...] URL. These results were obtained using Siemens [employer] IM TnIHreagent. Results from different methodologies should not becompared to one another as quantitative results and URLs mayvary by method. NOTE: a bias of less than or equal to 10% may occur forthese substances: Biotin (3500 ng/mL) Cholesterol (500 mg/dL)Protein Albumin (6 g/dL)Protein Gamma Globulin (2.5 g/dL)Total Protein (12 g/dL) - CT ANGIO [id number] 05:39:00 [facility] : 2000 Sex: M PatientName: LENA RAMIREZ Unit No: [id number] EXAMS: CPT CODE: [id number] CT ANGIO CHEST 24302 Radiation Dose CTDIVOL = 28.07 (mGy): DLP [...] acute chest findings. COMMENTS: Consistent with the [employer]'s Incidental Findings Committee white paper (J Am Xi Radiol 2018): Any incidental renal lesion less than 1 cm or classified as too small to characterize, or any incidental cystic renal lesion characterized assimple-appearing, is likely benign. No follow-up imaging is recommended for these lesions per consensus recommendations based on imaging criteria. REBEKA Buck NAME: [address] PHYS: Chucky [place] [address] : 2000 AGE: 23 SEX: M LOC: B.ERS PHONE #: [phone] EXAM DATE: 05/06/2024 STATUS: REG ER FAX #: [phone] RAD #: D/C DT PAGE 1 Signed Report (CONTINUED) Patient Name: LENA RAMIREZ Unit No: [id number] EXAMS: CPT CODE: [id number] CT ANGIO CHEST [address]2337 (Continued) Electronically Signed by Jalil Pope 05/06/2024 at 0539 Reported and signed by: Jalil Grider MD CC: Billie Bowles NP; Chucky Mason MD Dictated Date/Time: 05/06/2024 (0539) Technologist: Farrah Patricio CTDI: DLP: Trnscrpt: 05/06/2024 (0539) [email or web address] [facility] Paula NAME: [address] PHYS: Chucky Madrigal [place] [id number] : 2000 AGE: 23 SEX: M LOC: Donn.ERS PHONE #: [phone] EXAM DATE: 05/06/2024 STATUS: REG ER FAX #: [phone] RAD #: D/C DT PAGE 2 Signed Report Patient Name: LENA RAMIREZ Unit No: [id number] EXAMS: CPT CODE: [id number] CT ANGIO CHEST 14992 (Continued) Orig Print D/T: S: 05/06/2024 (0539) REBEKA Buck NAME: LENA RAMIREZ [address] [place] [address] Blvd PHYS: Chucky [place]al [place], [place] [address] : 2000 AGE: 23 SEX: M LOC: [place] PHONE #: [phone] EXAM DATE: 05/06/2024 STATUS: REG ER FAX #: [phone] RAD #: D/C DT PAGE 3 Signed ReportTROP-I HIGH [id number] 04:55:00* Test Item Value Reference Range Interpretation [...] URL. These results were obtained using Siemens [employer] IM TnIHreagent. Results from different methodologies should not becompared to one another as quantitative results and URLs mayvary by method. NOTE: a bias of less than or equal to 10% may occur forthese substances: Biotin (3500 ng/mL) Cholesterol (500 mg/dL)Protein Albumin (6 g/dL)Protein Gamma Globulin (2.5 g/dL)Total Protein (12 g/dL) [id number] 04:55:00* Test Item Value Reference Range Interpretation Comme nts LIPASE (test code = LIP) 44 Unit/L 12-53 N COMPREHENSIVE METABOLIC [id number] 04:55:00* Test Item Value Reference Range Interpretation [...] ode = CK) 143 Unit/L 34-171 N [id number] 04:55:00* Test Item Value Reference Range Interpretation Comme nts MAGNESIUM (test code = MAG) 2.0 MG/DL 1.8-2.4 N [id number] 04:55:00* Test Item Value Reference Range Interpretation Comme nts ALCOHOL (test code = ALC) 275 MG/DL 0-10 H MEDICAL ALCOHOL RESULTS. SITE WAS PREPPED WITH BETADINE. <10 MG/DL ARE CONSIDERED NEGATIVE. >400 MG/DL MAY BE FATAL.RESULTS FOR MEDICAL USE ONLY. NOT TO BE USED FOR FORENSIC PURPOSES. B-TYPE NATRIURETIC [id number] 04:55:00* Test Item Value Reference Range Interpretation Comme nts B-TYPE NATRIURETIC PEPTIDE ( test code = BNP) 2.1 PG/ML 0.00-100.00 N DRUGS OF ABUSE SCREEN [id number] 04:40:00* Test Item Value Reference Range Interpretation [...] interpret this result as normal/abnormal. CBC W/AUTO [id number] 04:31:00* Test Item Value Reference Range Interpretation [...] K/mm3 0.00-0.05 N - XR CHEST 1 [id number] 03:51:00 [facility] : 2000 Sex: M FAX: Billie Mcconnell NP [phone] [place]: E St: PRE FAX: Chucky Azevedo MD Patient Name: LENA RAMIREZ Unit No: [id number] EXAMS: CPT CODE: [id number] XR CHEST 1 V 03902 PROCEDURE INFORMATION: Exam: XR Chest Exam date [...] Bowles NP;Chucky Mason MD Dictated Date/Time: 05/06/2024 (035)Technologist: RAISSA GRIMM Transcribed Date/Time: 05/06/2024 (035) By: [email or web address] Orig Print D/T: S: 05/06/2024 (0351) REBEKA Buck NAME:LENA RAMIREZ [address] [place] [address] Bl PHYS: Chucky Madrigal [place], [place] [address] : 2000 AGE: 23 SEX: M LOC: B.ERS PHONE #: [phone] EXAM DATE: 05/06/2024 STATUS: PRE ER FAX #: [phone] RAD NO: DC Dt: PAGE 1 Signed ReportTROP-I HIGH [id number] 09:50:00* Test Item Value Reference Range Interpretation [...] URL. These results were obtained using Siemens [employer] IM TnIHreagent. Results from different methodologies should not becompared to one another as quantitative results and URLs mayvary by method. NOTE: a bias of less than or equal to 10% may occur forthese substances: Biotin (3500 ng/mL) Cholesterol (500 mg/dL)Protein Albumin (6 g/dL)Protein Gamma Globulin (2.5 g/dL)Total Protein (12 g/dL) BASIC METABOLIC [id number] 08:51:00* Test Item Value Reference Range Interpretation [...] interpret this result as normal/abnormal. TROP-I HIGH [id number] 08:51:00* Test Item Value Reference Range Interpretation [...] URL. These results were obtained using Siemens [employer] IM TnIHreagent. Results from different methodologies should not becompared to one another as quantitative results and URLs mayvary by method. NOTE: a bias of less than or equal to 10% may occur forthese substances: Biotin (3500 ng/mL) Cholesterol (500 mg/dL)Protein Albumin (6 g/dL)Protein Gamma Globulin (2.5 g/dL)Total Protein (12 g/dL) - XR CHEST 1 [id number] 08:38:00 [facility] LE[facility] : 2000 Sex: M FAX: Patsy Edgar [place]: E St: REG Patient Name: LENA RAMIREZ Unit No: [id number] EXAMS: CPT CODE: [id number] XR CHEST1 V 82991 PROCEDURE INFORMATION: Exam: XR Chest Exam date [...] D/T: S: 04/15/2024 (0839) REBEKA Buck NAME: LENA RAMIREZ [address] [place] [address] PHYS: Patsy Babb, [place] [address] : 2000 AGE: 23 SEX: M LOC: B.ERS PHONE #: [phone] EXAM DATE: 04/15/2024 STATUS: REG ER FAX #: [phone] RAD NO: DC Dt: PAGE 1 Signed ReportCBC W/O [id number] 08:32:00* Test Item Value Reference Range Interpretation [...] Notes Date/Time Note Provider Source 2024-06-19 09:06:00 [facility] Grant Buck (COCCShirin) EMERGENCY PROVIDER REPORT REPORT#:[id number] REPORT STATUS: Signed DATE:06/19/24 TIME: 905 PATIENT: LENA RAMIREZ UNIT #: [id number] ROOM/BED: AGE: 23 SEX: M PCP PHYS: Undefined Provider SERVICE AUTHOR: oCrby Rhodes APRNNP * ALL edits or amendments must [...] Room air 06/19 641 Temp 36.9 06/19 06 Pulse 127 06/19 0641 Resp 16 06/19 641 Last Documented: Result Date Time Pulse Ox 99 / 1016 B/P 104/58 / 0900 B/P Mean 75 06/19 0900 Pulse 94 / 0900 Resp 18 06/19 [...] RADIOLOGY - XR CHEST 1 V 06/19 0729 Report Impression - Status: SIGNED Entered: 06/19/2024 2495 IMPRESSION: No acute findings. Impression By: [email or web address] [...] Admin Aspirin 325 MG X1ED STA 06/19 721 DC / PO 06/19 0722 0802 Electrolytic, Caloric, And Brayden Sig/Adelso Start time Last Medication Dose Route Stop Time Status Admin Sodium Chloride 1,000 ML X1ED STA 06/19 0721 DC / IV 06/19 0820 0801 Patient Discharge Departure [...] 104/58 06/19 900 B/P Mean 75 06/19 0900 Pulse 94 06/19 0900 Resp 18 06/19 0900 O2 Delivery Room air 06/19 641 Temp 36.9 06/19 641 All vital signs available at the time of this entry have been reviewed. Condition Stable, Improved Clinical Impression Clinical Impression Primary Impression: Chest pain Secondary Impressions: Anxiety attack, Palpitations Disposition Decision Discharge )( Discharged to Home Yes )( Time 0920 )( Date 06/19/24 Discharge/Care Plan Counseled Regarding [...] Discharge Departure Discharge/Care Plan Referrals Resource Referral: [facility] Address: [address] [place] [address] [place] [address] Supervising Physician Note MidLv Saw Pt Alone I have reviewed the PA/REGIONAL EXTENSION SERVICE SPECIALIST's note and plan of care. I was available for consultation as needed at all times during the patient's visit in the emergency department. I agree with the clinical impression, plan and disposition. at 1051 at 0917 RPT #:[id number] END OF REPORT [facility] 2024-05-06 05:57:00 [facility] ([facility]) EMERGENCY PROVIDER REPORT REPORT#:[id number] REPORT STATUS: Signed DATE:05/06/24 TIME: 05 PATIENT: LENA RAMIREZ UNIT #: [id number] ROOM/BED: AGE: 23 SEX: M PCP PHYS: Billie Bowles REGIONAL EXTENSION SERVICE SPECIALIST SERVICE AUTHOR: Chucky Mason MD * ALL [...] 05/06 0316 O2 Delivery Room air 05/06 031 Temp 98.0 05/06 031 Pulse 121 05/06 [...] 0400: [Embedded Image Not Available] Laboratory Tests: 05/0619 0400 0400 0400 Chemistry Troponin I High [...] % (Auto) (14.1 - 45.4 %) 41.5 [place] % (Auto) (2.5 - 11.7 %) 7.5 Eos % (Auto) (0.0 - 6.2 %) 0.1 Baso % (Auto) (0.0 - 2.6 %) 0.4 Gran # (2.0 - 13.7 k/mm3) 3.94 Lymph # (Auto) (0.6 - 3.8 K/mm3) 3.26 [place] # (Auto) (0.11 - 0.59 K/mm3) 0.59 [...] CAT SCAN - CT ANGIO CHEST 05/06 8660 Report Impression - Status: SIGNED Entered: 05/06/2024 0365 IMPRESSION: 1. No evidence of pulmonary embolism. 2. No acute chest findings. COMMENTS: Consistent with the [employer]'s Incidental Findings Committee white paper (J Am Xi Radiol 2018): Any incidental renal lesion less than 1 cm or classified as too small to characterize, or any incidental cystic renal lesion characterized as simple-appearing, is likely benign. No follow-up imaging is recommended for these lesions per consensus recommendations based on imaging criteria. Impression By: [email or web address] - Jalil Grider MD ECG #1 Interpretation [...] Ox 99 05/06 0316 B/P 133/83 05/06 316 B/P Mean 99 05/06 031 O2 Delivery Room air 05/06 316 Temp 98.0 05/06 316 Pulse 121 05/06 0316 Resp 16 05/06 0316 Last Documented: Result Date Time Pulse Ox 99 05/06 0533 Pulse 101 05/06 0533 Resp 21 05/06 0533 B/P 142/88 05/06 0355 B/P Mean 109 05/06 0355 O2 Delivery Room air 05/06 316 Temp 98.0 05/066 All vital signs available at the time of this entry have been reviewed. Clinical Impression Clinical Impression Primary Impression: Chest pain Secondary Impressions: Alcohol intoxication Disposition Decision Discharge )( Discharged to Home Yes )( Time 0600 )( Date 05/06/24 Discharge/Care Plan Patient Instructions ED Alcohol Intoxication, ED Chest Pain, Uncertain Cause Referrals Provider Referral: Deepthi Patel MD Follow-Up: 2-3 Days Address: [address] [place] [address] [address] [place] [id number] Resource Referral: [facility] Follow-Up: 2-3 Days Address: [address] [place] [address] [place] [address] Departure Forms BOLIVIA PCP LIST at 2306 RPT #:[id number] END OF REPORT [facility] 2024-04-15 08:45:00 [facility] ([facility]) EMERGENCY PROVIDER REPORT REPORT#:[id number] REPORT STATUS: Signed DATE:04/15/24 TIME: 08 PATIENT: LENA RAMIREZ UNIT #: [id number] ROOM/BED: AGE: 23 SEX: M PCP PHYS: Billie Bowles REGIONAL EXTENSION SERVICE SPECIALIST SERVICE AUTHOR: Patsy Edgar APRNNP * ALL [...] estrogen use, Unilateral leg swelling. PERC Result Wells PE crit low risk, PERC rule not [...] RADIOLOGY - XR CHEST 1 V 04/15 753 Report Impression - Status: SIGNED Entered: 04/15/2024 [...] Discharge Departure Discharge/Care Plan Referrals Resource Referral: [facility] Address: [address] [place] [address] [place] [address] Supervising Physician Note MidLv Saw Pt Alone I have reviewed the PA/REGIONAL EXTENSION SERVICE SPECIALIST's note and plan of care. I was available for consultation as needed at all times during the patient's visit in the emergency department. I agree with the clinical impression, plan and disposition. at 1005 at 0926 RPT #:[id number] END OF REPORT [facility]
[2025-08-26 08:58] LABS: Absolute Lymphocytes (CBC) 2.6 K/uL (0.7-4.9); Hematocrit 41.5 % (39.6-49.0); Hemoglobin 14.0 g/dL (13.6-17.9); MCH 30.4 pg (27.0-35.0); MCHC 33.7 g/dL (32.0-36.0); MCV 90.1 fL (80-100); MPV 7.3 fL (7.6-11.3); Nucleated RBC Absolute Count 0.0 (0-0); Nucleated Red Blood Cells % 0.1 % (0-0); RBC Red Blood Cell Count 4.61 M/uL (4.33-5.43); White Blood Count 5.80 thou/uL (4.3-10.9)
[2025-08-26 09:10] LABS: PT Prothrombin Time 13.7 SECONDS (10-13.0); PTT, Activated Partial Thromb 29.2 SECONDS (27.2-37.4); Protime INR 1.22
[2025-08-26 09:41] LABS: ALT/SGPT 21 U/L (16-61); AST/SGOT < 10 U/L (15-37); Albumin 3.7 g/dL (3.4-5.0); Albumin/Globulin Ratio 1.0 (1.1-1.8); Alkaline Phosphatase 56 U/L (45-117); Anion Gap 10.1 mEq/L (5.0-15.0); BUN Blood Urea Nitrogen 3 mg/dL (7-18); Bilirubin Indirect, Calculated 0.2 mg/dL (0.2-0.8); Globulin 3.7 g/dL (2.3-3.5); Glucose Level 126 mg/dL (74-106); Potassium 3.1 mEq/L (3.5-5.1); Troponin High Sensitivity 4.4 pg/mL (<58.9)
[2025-08-26 10:12] LABS: METHAMPHETAM NEGATIVE (NEGATIVE); THC Cannibis NEGATIVE (NEGATIVE)
[2025-08-26] MEDS ORDERED: NA CHLORIDE 0.9% 1,000 ML with MULTIVITAMINS INJ 10 ML, FOLIC ACID 1 MG, THIAMINE HCL 1... IV SCH (11:00)
[2025-08-26] MEDS ORDERED: ONDANSETRON 4 MG/2 ML VIAL ONE (14:56)
--- NOTE | 2025-08-26 17:21 | EDPHYS ---
Physician Documentation [facility] Name: Evens Carreon Age: 25 yrs Sex: Male : 2000 Arrival Date: 08/26/2025 Time: 08:21 Bed 5 Private MD: ED Physician Paulino Armendariz HPI: 08/26 08:37 This 25 yrs old Male presents to ER via Unassigned with complaints of palpitations. kb 08:37 Pt is a 25 year old male who presents for anxiety and palpitations that started after kb inhaling 1 gram of cocaine. Pt was "partying" last night, drank several beers and then inhaled the cocaine. EMS reports HR up to 170 in route. Pt was given a total of 5mg of valium, nitro and aspirin. Pt states this is the first time he has ever used cocaine. . Historical: - Allergies: 08:22 No Known Allergies; db - PMHx: 08:22 adhd; db - Immunization history:: Adult Immunizations unknown. - Infectious Disease History:: Denies. - Social history:: Smoking status: unknown Patient uses alcohol, patient/guardian reports recent binge of alcohol consumption. street drugs, cocaine. ROS: 08:36 Constitutional: As per HPI kb Exam: 08:35 Head/Face: Normocephalic, atraumatic. ENT: Moist Mucous membranes Respiratory: kb Respirations even and unlabored. No increased work of breathing. Talking in full sentences Skin: Warm, dry with normal turgor. Normal color. MS/ Extremity: Pulses equal, no cyanosis. Neurovascular intact. Full, normal range of motion. Neuro: Awake and alert, GCS 15, oriented to person, place, time, and situation. 08:35 Constitutional: The patient appears alert, awake, anxious, 08:35 Cardiovascular: Rate: tachycardic, 08:35 ECG was reviewed by the Attending Physician. Vital Signs: 08:22 BP 117 / 73; Pulse 130; Resp 20; Temp 97.8; Pulse Ox 100% ; Weight 63.5 kg; Height 5 db ft. 4 in. ; 08:30 BP 117 / 73; Pulse 127; Resp 20; Pulse Ox 100% on R/A; db 12:03 Pulse 109; Resp 24; Pulse Ox 98% on R/A; Pain 0/10; ar8 12:15 BP 122 / 96; Pulse 94; Resp 20; Pulse Ox 100% on R/A; ar8 15:00 BP 138 / 92; Pulse 102; Resp 16; Pulse Ox 100% ; db 17:09 Weight 62.23 kg; hb 17:30 BP 122 / 88; Pulse 92; Resp 16; Pulse Ox 99% ; db 08:22 Body Mass Index 24.03 (62.23 kg, 162.56 cm) db 12:03 Pain Scale: Adult ar8 MDM: 08:28 Medical Screening Exam initiated 08:40 Differential diagnosis: Ingestion/exposure to cocaine polypharmacy, alcohol kb intoxication. Data reviewed: vital signs, nurses notes. Historians other than the Patient: EMS: [facility]. 09:17 Management of patient was discussed with the following: Suicide hotline sales representative sales manager. ED course: Pt now reports suicidal ideations due to recent bad call on an ambulance. Pt apparently called the suicide hotline this morning at 0700 and they just called back to check on him. Pt reported to them that he has a plan to overdose and kill himself. 17:18 Consideration of Admission/Observation Escalation of care including kb admission/observation considered. transfer considered but pt denies suicidal ideations at this time, states he let his emotions get the best of him. [facility] came to screen the patient and recommends outpatient follow up. Counseling: I had a detailed discussion with the patient and/or guardian regarding the historical points, exam findings, and any diagnostic results supporting the discharge/admit diagnosis, lab results, the need for outpatient follow up, a psychiatrist, to return to the emergency department if symptoms worsen or persist or if there are any questions or concerns that arise at home. ED course: Pt ambulatory with steady gait. Significant other at bedside. 08/26 08:28 Order name: Acetaminophen; Complete Time: 09:44 kb 08/26 08:28 Order name: Basic Metabolic Panel; Complete Time: 09:44 kb 08/26 08:28 Order name: CBC with Diff; Complete Time: 09:02 kb 08/26 08:28 Order name: ETOH Level; Complete Time: 09:24 kb 08/26 08:28 Order name: Hepatic Function; Complete Time: 09:44 kb 08/26 08:28 Order name: PT-INR; Complete Time: 09:17 kb 08/2628 Order name: Ptt, Activated; Complete Time: 09:17 kb 08/26 08:28 Order name: Salicylate; Complete Time: 09:40 kb 08/26 08:28 Order name: Urine Drug Screen; Complete Time: 10:12 kb 08/26 08:28 Order name: Troponin High Sensitivity; Complete Time: 09:44 kb 08/26 12:19 Order name: ETOH Level; Complete Time: 14:28 kb 08/26 08:28 Order name: EKG - Nurse/Tech; Complete Time: 08:45 kb 08/26 08:28 Order name: IV Saline Lock; Complete Time: 08:45 kb 08/26 08:28 Order name: Labs collected and sent; Complete Time: 08:45 kb 08/26 08:28 Order name: Suicide Screening ([place]); Complete Time: 08:45 kb EC:35 Rate is 122 beats/min. Rhythm is regular. QRS [place] is Normal. NV interval is normal at kb 132 msec. QRS interval is normal at 82 msec. QT interval is normal at 493 msec. Administered Medications: 08:40 Drug: NS 0.9% IV 1000 ml IV at 1000 ml once; may continue liter started by EMS Route: db IV; Rate: 1000 ml; Site: right antecubital; 09:30 Follow up: Response: No adverse reaction; IV Status: Completed infusion; IV Intake: ar8 1000ml 11:55 Drug: Banana Bag - (Multivitamin IV 1 amp, NS 0.9% IV 1000 ml, Thiamine IV 100 mg, ar8 foLIC Acid IVPB 1 mg) IV at calculated rate once Route: IV; Rate: calculated rate; Site: right antecubital; 14:15 Follow up: Response: No adverse reaction; IV Status: Completed infusion; IV Intake: ar8 1000ml 15:11 Drug: Ondansetron IVP 4 mg IVP once; over 2 minutes Route: IVP; Site: right antecubital;ar8 Disposition: 18:00 Co-signature as Attending Physician, Paulino Armendariz MD I reviewed the patient's care rn provided by the Advanced Practice Provider and agree with the diagnosis and treatment plan. Disposition Summary: 08/26/25 17:20 Discharge Ordered Notes: Location: Home kb Condition: Stable kb Diagnosis - Alcohol abuse with intoxication kb - Cocaine abuse kb Followup: kb - With: Emergency Department - When: As needed - Reason: Worsening of condition Followup: kb - With: Private Physician - When: 2 - 3 days - Reason: Recheck today's complaints, Continuance of care, Re-evaluation by your physician Discharge Instructions: - Discharge Summary Sheet kb - Alcohol Intoxication, Fuzo-hi-Scpi kb - Illegal Drug Use Information, Adult kb Forms: - Medication Reconciliation Form kb - Prescription Opioid Use kb - Patient Portal Instructions kb - Leadership Thank You Letter kb Signatures: Dispatcher [employer] EDMS Annia Perea, HEALTH AND SAFETY ADVISOR-C HEALTH AND SAFETY ADVISOR-Ckb Paulino Armendariz MD MD rn Benton, Danielle, RN RN db Rodriguez, Andrea, RN RN ar8 Corrections: (The following items were deleted from the chart) 08:29 08:29 ACETAMINOPHEN+C.LAB.BRZ ordered. EDMS EDMS 08:29 08:29 BASIC METABOLIC PANEL+C.LAB.BRZ ordered. EDMS EDMS 08:29 08:29 CBC+H.LAB.BRZ ordered. EDMS EDMS 08:29 08:29 ETHANOL+C.LAB.BRZ ordered. EDMS EDMS 08:29 08:29 HEPATIC FUNCTION+C.LAB.BRZ ordered. EDMS EDMS 08:29 08:29 PROTIME (+INR)+COAG.LAB.BRZ ordered. EDMS EDMS 08:29 08:29 PTT, ACTIVATED+COAG.LAB.BRZ ordered. EDMS EDMS 08:29 08:29 SALICYLATE+C.LAB.BRZ ordered. EDMS EDMS 08:29 08:29 URINE DRUG SCREEN+UC.LAB.BRZ ordered. EDMS EDMS 08:29 08:29 Troponin High Sensitivity+C.LAB.BRZ ordered. EDMS EDMS 08:40 08:37 Pt is a 25 year old male who presents for anxiety and palpitations that started kb after inhaling 1 gram of cocaine. Pt was "partying" last night, drank several beers and then inhaled the cocaine. EMS reports HR up to 170 in route. Pt was given a total of 5mg of valium, nitro and aspirin. . kb
--- NOTE | 2025-08-26 17:21 | ER ---
Nurse's Notes [facility] Name: Evens Carreon Age: 25 yrs Sex: Male : 2000 Arrival Date: 08/26/2025 Time: 08:21 Bed 5 Private MD: Diagnosis: Alcohol abuse with intoxication;Cocaine abuse Presentation: 08/26 08:22 Chief complaint: EMS states: PALPITATIONS FEELING ANXIOUS CALLED FOR HELP DRANK 12 PACK db OF BEER YESTERDAY AND 1 GM OF COCAINE. EMS GAVE 5 MG VERSED, 324 MG ASA, 1 NITRO. Coronavirus screen: Client denies travel out of the [place] in the last 14 days. At this time, the client does not indicate any symptoms associated with coronavirus-19. Ebola Screen: Patient negative for fever greater than or equal to 101.5 degrees Fahrenheit, and additional compatible Ebola Virus Disease symptoms Patient denies exposure to infectious person. Patient denies travel to an Ebola-affected area in the 21 days before illness onset. No symptoms or risks identified at this time. Initial Sepsis Screen: Does the patient meet any 2 criteria? No. Patient's initial sepsis screen is negative. Does the patient have a suspected source of infection? No. Patient's initial sepsis screen is negative. Risk Assessment: Do you want to hurt yourself or someone else? Patient reports no desire to harm self or others. Onset of symptoms was August 26, 2025. Care prior to arrival: Medication(s) given: ASA, 81 mg, x 4, Normal saline infusion, Nitroglycerin, x 1, VERSED 5 MG. 08:22 Method Of Arrival: EMS: [facility] db 08:22 Acuity: JOVANA 2 db 09:12 Risk Assessment: Do you want to hurt yourself or someone else? Patient reports db desire/thoughts of hurting themselves or someone else. Provider notified. Triage Assessment: 08:22 General: Appears in no apparent distress. comfortable, Behavior is calm, cooperative. db Pain: Complains of pain in chest. Neuro: Level of Consciousness is awake, alert, obeys commands, Oriented to person, place, time, situation. Respiratory: Airway is patent Respiratory effort is even, unlabored, Respiratory pattern is regular, symmetrical. Historical: - Allergies: 08:22 No Known Allergies; db - PMHx: 08:22 adhd; db - Immunization history:: Adult Immunizations unknown. - Infectious Disease History:: Denies. - Social history:: Smoking status: unknown Patient uses alcohol, patient/guardian reports recent binge of alcohol consumption. street drugs, cocaine. Screenin:30 [facility] ED Fall Risk Assessment (Adult) History of falling in the last 3 months, db including since admission No falls in past 3 months (0 pts) Confusion or Disorientation No (0 pts) Intoxicated or Sedated No (0 pts) Impaired Gait No (0 pts) Mobility Assist Device Used No (0 pt) Altered Elimination No (0 pt) Score/Fall Risk Level 0 - 2 = Low Risk Oriented to surroundings, Maintained a safe environment. Abuse screen: Denies threats or abuse. Denies injuries from another. Nutritional screening: No deficits noted. Tuberculosis screening: No symptoms or risk factors identified. Assessment: 08:30 Reassessment: SEE TRIAGE FOR INITIAL ASSESSMENT. db 09:12 Reassessment: PT REQUEST STAFF SPEAK TO SUICIDE HOTLINE. PT REPORTED TO HOTLINE AT 0700 db REPORTED WANTED TO OD ON PILLS THAT HE HAS ACCESS TO AT HOME. 09:22 Reassessment: Patient appears in no apparent distress at this time. Patient and/or db family updated on plan of care and expected duration. Pain level reassessed. Patient is alert, oriented x 3, equal unlabored respirations, skin warm/dry/pink. PT AMBULATORY TO RESTROOM. 11:00 Reassessment: Patient appears in no apparent distress at this time. Patient and/or db family updated on plan of care and expected duration. Pain level reassessed. Patient is alert, oriented x 3, equal unlabored respirations, skin warm/dry/pink. 12:00 Reassessment: Patient appears in no apparent distress at this time. Patient and/or db family updated on plan of care and expected duration. Pain level reassessed. Patient is alert, oriented x 3, equal unlabored respirations, skin warm/dry/pink. 14:00 General: Appears in no apparent distress. comfortable, Behavior is calm, cooperative, db appropriate for age, uncooperative. 15:00 Reassessment: Patient appears in no apparent distress at this time. Patient and/or db family updated on plan of care and expected duration. Pain level reassessed. Patient is alert, oriented x 3, equal unlabored respirations, skin warm/dry/pink. 16:00 Reassessment: Patient appears in no apparent distress at this time. Patient and/or db family updated on plan of care and expected duration. Pain level reassessed. Patient is alert, oriented x 3, equal unlabored respirations, skin warm/dry/pink. 17:00 Reassessment: Patient appears in no apparent distress at this time. Patient and/or db family updated on plan of care and expected duration. Pain level reassessed. Patient is alert, oriented x 3, equal unlabored respirations, skin warm/dry/pink. [facility] ASSESSED PATIENT.. SAFETY PLAN MADE AND ON CHART. 17:30 Reassessment: Patient appears in no apparent distress at this time. Patient and/or db family updated on plan of care and expected duration. Pain level reassessed. Patient is alert, oriented x 3, equal unlabored respirations, skin warm/dry/pink. General: Appears in no apparent distress. comfortable, Behavior is calm, cooperative. Neuro: Level of Consciousness is awake, alert, obeys commands, Oriented to person, place, time, situation. Respiratory: Airway is patent Respiratory effort is even, unlabored, Respiratory pattern is regular, symmetrical. Psych: 09:12 [place] Suicide Severity Screening: In the past month, have you wished you were db or wished you could go to sleep and not wake up? Patient responds "yes." "In the past month, have you actually had any thoughts of killing yourself?" Patient responds "yes." "In your lifetime, have you ever done anything, started to do anything, or prepared to do anything to end your life?" Patient responds "no.". Subjective: Patient's mood is sad, Delusions are denied, Hallucinations are denied Having thoughts of suicide. Objective: Patient is cooperative, Speech is normal, Affect is appropriate. Interventions: Removed personal items and placed in bag. Patient placed in hospital gown. Searched person for dangerous items. Interventions: Urine collected and sent for urine drug test. Safety Checks: Personal items have been removed. Door is open. No visitors are present at this time. Patient uses Patient uses cocaine. Commitment: Patient will be a voluntary commitment. Vital Signs: 08:22 BP 117 / 73; Pulse 130; Resp 20; Temp 97.8; Pulse Ox 100% ; Weight 63.5 kg; Height 5 db ft. 4 in. ; 08:30 BP 117 / 73; Pulse 127; Resp 20; Pulse Ox 100% on R/A; db 12:03 Pulse 109; Resp 24; Pulse Ox 98% on R/A; Pain 0/10; ar8 12:15 BP 122 / 96; Pulse 94; Resp 20; Pulse Ox 100% on R/A; ar8 15:00 BP 138 / 92; Pulse 102; Resp 16; Pulse Ox 100% ; db 17:09 Weight 62.23 kg; hb 17:30 BP 122 / 88; Pulse 92; Resp 16; Pulse Ox 99% ; db 08:22 Body Mass Index 24.03 (62.23 kg, 162.56 cm) db 12:03 Pain Scale: Adult ar8 ED Course: 08:22 Arm band placed on Patient placed in an exam room. db 08:23 Patient arrived in ED. bd 08:27 Annia Perea FNP-C is PHCP. kb 08:27 Paulino Armendariz MD is Attending Physician. kb 08:30 Patient has correct armband on for positive identification. Bed in low position. Call db light in reach. Side rails up X2. Client placed on continuous cardiac and pulse oximetry monitoring. NIBP monitoring applied. gambling monitor on. Pulse ox on. NIBP on. Warm blanket given. Pillow given. 08:30 Initial lab(s) drawn, by me, sent to lab. EKG done. Maintain EMS IV. Dressing intact. db Good blood return noted. Site clean \\T\\ dry. Gauge \\T\\ site: 20 G RAC. 08:45 Malinda Marino, RN is Primary Nurse. db 08:52 Triage completed. 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 08:55 Verbal reassurance given. ty 14:07 contacted [facility] to have a screener evaluate pt. bd 17:30 Provided Education on: FOLLOWUP. db 17:30 No provider procedures requiring assistance completed. IV discontinued, intact, db bleeding controlled, No redness/swelling at site. Administered Medications: 08:40 Drug: NS 0.9% IV 1000 ml IV at 1000 ml once; may continue liter started by EMS Route: db IV; Rate: 1000 ml; Site: right antecubital; 09:30 Follow up: Response: No adverse reaction; IV Status: Completed infusion; IV Intake: ar8 1000ml 11:55 Drug: Banana Bag - (Multivitamin IV 1 amp, NS 0.9% IV 1000 ml, Thiamine IV 100 mg, ar8 foLIC Acid IVPB 1 mg) IV at calculated rate once Route: IV; Rate: calculated rate; Site: right antecubital; 14:15 Follow up: Response: No adverse reaction; IV Status: Completed infusion; IV Intake: ar8 1000ml 15:11 Drug: Ondansetron IVP 4 mg IVP once; over 2 minutes Route: IVP; Site: right antecubital;ar8 Medication: 08:30 VIS not applicable for this client. db Intake: 09:30 IV: 1000ml; Total: 1000ml. ar8 14:15 IV: 1000ml; Total: 2000ml. ar8 Outcome: 17:20 Discharge ordered by . jenna 17:30 Discharged to home ambulatory, with family, dania 17:30 Condition: stable 17:30 Discharge instructions given to patient, Instructed on discharge instructions, follow up and referral plans. 17:58 Patient left the ED. Signatures: Annia Perea, GLOBAL HEAD ADVERTISER SOLUTIONS-C GLOBAL HEAD ADVERTISER [employer]UTIONS-Nimo Rider Heather, RN RN Malinda Marino RN RN db Yandell, Tylor ty Rodriguez, Andrea, RN RN ar8
[2025-08-26 23:57] VITALS: TEMP 97.8
[2025-08-27 00:21] VITALS: BP 122/88; O2SAT 99
== END 2025-08-26 17:58 | disposition home or self-care (01) ==
LOC: ER 08:21
DX: R00.2 Palpitations (principal); F41.9 Anxiety disorder, unspecified; F10.129 Alcohol abuse with intoxication, unspecified; F14.10 Cocaine abuse, uncomplicated; Y90.8 Blood alcohol level of 240 mg/100 ml or more
CPT/HCPCS: 36415; 80048; 80076; 80143; 80179; 80307; 82077; 84484; 85025; 85610; 85730; 93005; 96361; 96365; 96366; 96375; 99285; J2405; J3411; J7030